=== PATIENT | female | born 1960 | race Caucasian/White ===

== ENCOUNTER 2018-03-23 20:03 | Outpatient (REF) | payer BC, SELFPAY ==
--- NOTE | 2018-03-23 14:45 | PAPFT_PTH ---
PATIENT: Viktoria Hurst LOC: N U#:[id number] AGE/SX: 57/F ROOM: RE03/23/[address]: BRI Macdonald : 1960 BED: DIS: 03/23/2018 SPEC #: [id number] RECD: 03/24/18 12:57 STATUS: CAROL ANN REQ #: [id number] HAMIDA: 03/23/18 14:[address]: Susana Carlisle DEPT: [facility] Cytology RECD BY: Alisha Tipton ENTERED: 03/24/18 12:57 SP TYPE: PAPFT OTHR DR: Ton Conrad MD Tissues: 1 - CX/ENDOCX FOR PAP SMEARS Procedures: PAP THIN PREP/UVM Screening HPV DNA PROBE Comments: [id number]
[2018-04-13 20:08] LABS: HPV High Risk type 16, PCR Negative (Negative); HPV High Risk type 18, PCR Negative (Negative); HPV other High Risk types, PCR Negative (Negative); Specimen Source CERVIX
== END 2018-03-23 20:23 ==
LOC: LBN 20:03
PROVIDERS: PCP Family Medicine; Visit Provider Nurse Practitioner Family
DX: Z12.4 Encounter for screening for malignant neoplasm of cervix (principal); Z11.51 Encounter for screening for human papillomavirus (HPV)
CPT/HCPCS: 87624; 88142

== ENCOUNTER 2018-06-12 12:56 | Outpatient (REF) | payer BC, SELFPAY ==
--- NOTE | 2018-06-12 11:20 | ENDO_PTH ---
PATIENT: Viktoria Hurst LOC: N U#:[id number] AGE/SX: 57/F ROOM: RE06/12/[address]: Tomasa Dubose : 1960 BED: DIS: 06/12/2018 SPEC #: [id number] RECD: 06/12/18 13:08 STATUS: CAROL ANN RECierra #: [id number] HAMIDA: 06/12/18 11:[address]: Tomasa Dubose DEPT: Surgical Specimen RECD BY: Alisha Tipton ENTERED: 06/12/18 13:08 SP TYPE: Endo OTHR DR: Ton Conrad MD Tissues: 1 - ENDOCERVICAL BX/CURRETTE Procedures: GROSS AND MICRO LEVEL 4 Comments: [id number]
== END 2018-06-12 13:16 ==
LOC: LBN 12:56
PROVIDERS: PCP Family Medicine; Visit Provider Obstetrics & Gynecology Gynecology
DX: N88.8 Other specified noninflammatory disorders of cervix uteri (principal); R87.810 Cervical high risk human papillomavirus (HPV) DNA test positive
CPT/HCPCS: 88305

== ENCOUNTER 2018-11-03 08:20 | Outpatient (CLI) | payer BC, SELFPAY ==
[2018-11-03 11:13] LABS: TSH 0.19 uIU/mL (0.358-3.74)
== END 2018-11-03 08:40 ==
PROVIDERS: PCP Family Medicine; Visit Provider Nurse Practitioner Family
DX: E03.9 Hypothyroidism, unspecified (principal)
CPT/HCPCS: 36415; 84443

== ENCOUNTER 2019-01-14 05:57 | Outpatient (CLI) | payer BC, SELFPAY ==
[2019-01-14 08:22] LABS: Abs Immature Grans 0.01 k/cumm (0.0-0.09); Absolute Basophil Count 0.02 k/cumm (0.0-0.2); Absolute Eosinophil Count 0.11 k/cumm (0.0-0.7); Absolute Lymphocyte Count 2.05 k/cumm (1.2-3.4); Absolute Monocyte Count 0.38 k/cumm (0.11-0.7); Absolute Neutrophil Count 5.72 k/cumm (1.2-6.7); Basophils % 0.2; Eosinophils % 1.3; HCT 38.6 % (36.0-46.0); HGB 12.8 g/dL (12.0-15.5); Immature Grans % 0.1; Lymphocytes % 24.7; Mean Corp. HGB Concentration 33.2 g/dL (32.0-36.0); Mean Corpuscular Hemoglobin 31.2 pg (27.0-33.0); Mean Corpuscular Volume 94.1 fL (80-95); Mean Platelet Volume 10.7 fL (8.0-11.0); Monocytes % 4.6; Neutrophils % 69.1; Platelet Count 320 x1000/uL (130-400); RBC Distribution Width 12.2 % (11.7-14.6); White Blood Cell Count 8.29 k/cumm (4.4-10.8)
[2019-01-14 09:11] LABS: ALT 27 U/L (12-78); AST 20 U/L (15-37); Albumin 3.5 g/dL (3.4-5.0); Alkaline Phosphatase 87 U/L (46-116); Anion Gap 7.7 mmol/L (3-11); BUN 12 mg/dL (7-18); Bilirubin, Total 0.4 mg/dL (0.2-1.0); CO2 28.3 mmol/L (21.0-32.0); CREATININE 0.72 mg/dL (0.55-1.02); Calcium 8.9 mg/dL (8.5-10.1); Calculated LDL 81 mg/dL; Chloride 107 mmol/L (98-107); Cholesterol 145 mg/dL (50-200); Glucose 95 mg/dL (70-100); HDL Cholesterol 55 mg/dL (40-60); Potassium 4.2 mmol/L (3.5-5.1); Sodium 143 mmol/L (136-145); Total Protein 6.5 g/dL (6.4-8.2); Triglyceride 46 mg/dL (30-150)
[2019-01-14 09:15] LABS: TSH 5.37 uIU/mL (0.36-3.74)
== END 2019-01-14 06:17 ==
PROVIDERS: Internal Medicine; PCP Family Medicine; Visit Provider Nurse Practitioner Family
DX: Z00.00 Encounter for general adult medical examination without abnormal findings
CPT/HCPCS: 36415; 80053; 80061; 83721; 84443; 85025

== ENCOUNTER 2019-06-02 09:41 | Outpatient (REF) | payer BC, SELFPAY ==
--- NOTE | 2019-06-02 09:15 | PAPFT_PTH ---
PATIENT: Viktoria Hurst LOC: N U#:[id number] AGE/SX: 58/F ROOM: RE06/02/[address]: Paris Lovett NP : 1960 BED: DIS: 06/02/2019 SPEC #: [id number] RECD: 06/02/19 12:50 STATUS: CAROL ANN REQ #: [id number] HAMIDA: 06/02/19 09:[address]: Paris Lovett NP DEPT: [facility] Cytology RECD BY: Alisha Tipton ENTERED: 06/02/19 12:51 SP TYPE: PAPFT OTHR DR: Ton Conrad MD Tissues: 1 - CX/ENDOCX FOR PAP SMEARS Procedures: PAP THIN PREP/UVM Screening HPV DNA PROBE Comments: [id number]
== END 2019-06-02 10:01 ==
LOC: LBN 09:41
PROVIDERS: PCP Family Medicine; Visit Provider Nurse Practitioner Women's Health
DX: Z12.4 Encounter for screening for malignant neoplasm of cervix (principal)
CPT/HCPCS: 88142; 87624

== ENCOUNTER 2019-06-11 03:15 | Outpatient (CLI) | payer BC, SELFPAY ==
--- NOTE | 2019-06-11 08:10 | DI.MAMMO_ITS ---
EXAM: MG MAMMO SCREENING CLINICAL HISTORY: screening, Z12.39 TECHNIQUE: Mammograms were interpreted according to the usual protocol including computer analysis w [facility] CAD system, tomosynthesis and C-view imaging. COMPARISON: FINDINGS: Breasts are heterogeneously dense. No dominant mass or clumped microcalcification is identified in e ither breast. There is an area of architectural distortion of the upper outer quadrant of the right breast. This appears to have been present on prior studies of December 2017 and October 2016 and is essentia lly unchanged in comparison with previous examinations. No new mass identified in either breast. Th e area of architectural distortion may represent prior. IMPRESSION: No specific evidence of malignancy at this time. Follow-up mammogram requested in 12 months to contin ue surveillance of an area of apparent stable architectural distortion of the upper outer quadrant of the right breast. Category 2 breast density category C
== END 2019-06-11 03:35 ==
PROVIDERS: PCP Family Medicine; Visit Provider Nurse Practitioner Women's Health
DX: Z12.31 Encounter for screening mammogram for malignant neoplasm of breast (principal); N60.81 Other benign mammary dysplasias of right breast
CPT/HCPCS: 77063; 77067

== ENCOUNTER → 2020-06-08 02:18 | Outpatient (CLI) | payer BC, SELFPAY ==
[2020-06-08 10:12] LABS: TSH 1.88 uIU/mL (0.36-3.74)
== END ==
PROVIDERS: PCP Family Medicine; Visit Provider Family Medicine
DX: E03.9 Hypothyroidism, unspecified (principal)
CPT/HCPCS: 36415; 84443

== ENCOUNTER 2020-06-28 15:08 | Outpatient (REF) | payer BC, SELFPAY ==
--- NOTE | 2020-06-28 14:30 | PAPFT_PTH ---
PATIENT: Viktoria Hurst LOC: [facility] U#:[id number] AGE/SX: 59/F ROOM: RE06/28/[address]: Paris Lovett NP : 1960 BED: DIS: 06/28/2020 SPEC #: [id number] RECD: 06/28/20 17:57 STATUS: CAROL ANN REQ #: [id number] HAMIDA: 06/28/20 14:[address]: Rachell [place] DEPT: [facility] Cytology RECD BY: Alisha Tipton ENTERED: 06/28/20 17:57 SP TYPE: PAPFT OTHR DR: Ton Conrad MD Tissues: 1 - CX/ENDOCX FOR PAP SMEARS Procedures: PAP THIN PREP/UVM Screening HPV DNA PROBE Comments: [id number]
== END 2020-06-28 15:28 ==
LOC: LBN 15:08
PROVIDERS: PCP Family Medicine; Visit Provider Nurse Practitioner Women's Health
DX: Z12.4 Encounter for screening for malignant neoplasm of cervix (principal); Z11.51 Encounter for screening for human papillomavirus (HPV)
CPT/HCPCS: 88142; 87624

== ENCOUNTER 2020-07-12 01:38 | Outpatient (CLI) | payer BC, SELFPAY ==
--- NOTE | 2020-07-12 12:55 | DI.MAMMO_ITS ---
EXAM: MAMMO SCREENING CLINICAL HISTORY: screening TECHNIQUE: Mammograms were interpreted according to the usual protocol including computer analysis w [employer] CAD system, tomosynthesis and C-view imaging. COMPARISON: 2010 through 2018 FINDINGS: The breasts are composed of heterogeneously dense fibroglandular densities, Breast Density category C . No suspicious masses or suspicious microcalcifications are seen. Coarse, benign calcifications are a gain noted. There are stable areas nodularity in both breasts. No skin thickening or abnormal axillary lymph nodes are seen. There has been no significant change from prior exams. IMPRESSION: BI-RADS Cat 2 - Benign Findings Yearly screening mammography is recommended. Breast Density Category C, heterogeneously Dense. The mammogram demonstrates the patient's breast tissue is dense. Dense breast tissue is very common a nd is not abnormal but dense breast tissue can make it harder to find cancer on a mammogram. Also, de nse breast tissue may increase breast cancer risk. This information about the result of the mammogram report was provided to the patient to raise their awareness. Use this report when you speak with the patient about their risks for breast cancer, which includes their family history. At that time, you may recommend additional screening tests (Ultrasound or MRI) as they might be useful based on their r isk. A negative radiographic report should not delay biopsy if a dominant or clinically suspicious mass is present. Up to ten percent of cancers are not identified on mammography. A negative report may reinforce clinical impression. Adenosis and dense breasts may obscure an underlying neoplasm. False positive reports average 6 to 10%.
== END 2020-07-12 01:58 ==
PROVIDERS: PCP Family Medicine; Visit Provider Nurse Practitioner Women's Health
DX: Z12.31 Encounter for screening mammogram for malignant neoplasm of breast (principal)
CPT/HCPCS: 77063; 77067

== ENCOUNTER 2020-09-20 03:12 | Outpatient (CLI) | payer BC, SELFPAY ==
[2020-09-20 11:38] LABS: HCT 38.5 % (36.0-46.0); HGB 12.7 g/dL (11.2-15.7); MCH 31.4 pg (27.0-33.0); MCV 95.3 fL (80-95); MPV 10.6 fL (8.0-11.0); Platelet Count 332 10^3/uL (130-400); RBC 4.04 10^6/uL (3.93-5.22); RDW 11.7 % (11.7-14.6); RDW-SD 40.6 fL
[2020-09-20 11:51] LABS: ALT 22 U/L (14-59); AST 20 U/L (15-37); Albumin 3.8 g/dL (3.4-5.0); Alkaline Phosphatase 80 U/L (46-116); BUN 18 mg/dL (7-18); Bilirubin, Total 0.4 mg/dL (0.2-1.0); CREATININE 0.8 mg/dL (0.55-1.02); Calcium 9.1 mg/dL (8.5-10.1); Calculated LDL 92 mg/dL (<100); Chloride 105 mmol/L (98-107); Cholesterol 179 mg/dL (<200); Glucose 100 mg/dL (74-106); HDL Cholesterol 77 mg/dL (40-60); Potassium 4.2 mmol/L (3.5-5.1); Sodium 144 mmol/L (136-145); Total Protein 6.8 g/dL (6.4-8.2); Triglyceride 54 mg/dL (<150)
== END 2020-09-20 03:13 | disposition home or self-care (01) ==
LOC: LOS 03:12
PROVIDERS: PCP Family Medicine; Visit Provider Nurse Practitioner Family
DX: Z00.00 Encounter for general adult medical examination without abnormal findings (principal)
CPT/HCPCS: 36415; 80053; 80061; 85027

== ENCOUNTER 2020-09-20 17:24 | Inpatient (IN) | payer BC, SELFPAY ==
[2020-09-20] VITALS (21 sets, daily range): BP systolic 114–153; BP diastolic 51–86; PULSE 61–77; RESP 18; TEMP 36.3–37.9; O2SAT 95–99
--- NOTE | 2020-09-20 18:14 | W.ED.GENAD ---
Discharge Plan Disposition Patient Disposition: [facility] INPATIENT Condition: Serious Discharge Details Chief Complaint: Abd Prob Clinical Impression: Acute appendicitis Admit Date/Time: 09/20/20 22:35 Admit Provider: Monica Potter Attending Provider: Monica Potter Primary Care Provider: Ton Conrad ED Provider: Edouard Magana Medical Decision Making This is a 60-year-old female, past medical history of hypothyroidism, presenting to the ER today complaining of abdominal pain, crampy, worse in the right lower quadrant began yesterday. Associated nausea and multiple dry heaves. Clinically she is dry heaving, has right lower quadrant pain. Differential includes not excluded to appendicitis, colitis, atypical diverticulitis, small bowel obstruction, ileus, etc. We will obtain IV access, give IV fluid, 2 mg IV morphine, Zofran, routine laboratory values. Laboratory values reveal a white blood cell count of 16.30 hemoglobin 13.5 hematocrit 40.3 platelet count 338. Electrolytes unremarkable, creatinine 0.8 with a GFR greater than 60, glucose 113. TSH 8.4 free T4 105. Urinalysis pending. CT read by virtual radiology as acute uncomplicated appendicitis with marked distention likely due to calcified appendicolith or inspissated mucus at the base of the cecum. No perforation or periappendiceal abscess at this time. Multiple uterine fibroids CT findings discussed with patient. She was given IV Zosyn. She also required a dose of IV medication, given IV Dilaudid. Unfortunately we do not have capacity for admission at our hospital, both [facility] and [facility] at capacity as well. Will attempt transfer to [facility]. I discussed the case with surgical team at [facility] at 2123, Dr. Daniels. He felt as though I should talk with our surgical team here because the patient could likely have surgery and be discharged home. I discussed the case with Dr. Potter who felt as though watching the patient after surgery for at least 12 hours would be her preference and therefore would prefer we transfer. I once again spoke with Dr. Daniels at 2153. He accepts admission. All appropriate transfer paperwork completed I then received a call from our supervisor malt house, apparently a bed is available here if the patient would prefer to be admitted at our facility. I discussed options with the patient, she would prefer to be admitted to our facility. I once again reached out to our surgical team, Dr. Potter. She is agreeable to admission. I will place holding orders and she will see the patient in the morning. Medical Records Medical records reviewed: Yes I reviewed the patient's medical records. Lab Data Lab results reviewed: Yes I reviewed the patient's lab results. Labs: Laboratory Tests Range/Units 09/20/20 09/20/20 18:00 18:00 WBC (4.4-10.8) 10^3/uL 16.30 H D RBC (3.93-5.22) 10^6/uL 4.23 Hgb (11.2-15.7) g/dL 13.5 Hct (36.0-46.0) % 40.3 MCV (80-95) fL 95.3 H MCH (27.0-33.0) pg 31.9 MCHC (32.0-36.0) % 33.5 RDW (11.7-14.6) % 11.6 L Plt Count (130-400) 10^3/uL 338 MPV (8.0-11.0) fL 10.3 Immature Gran % 0.4 Neutrophils % 86.3 Lymphocytes % 9.3 Monocytes % 3.6 Eosinophils % 0.2 Basophils % 0.2 Nucleated RBC % % 0 Absolute Neutrophils (1.2-6.7) 10^3/uL 14.07 H Absolute Lymphocytes (1.2-3.4) 10^3/uL 1.52 Absolute Monocytes (0.1-0.8) 10^3/uL 0.59 Absolute Eosinophils (0.0-0.7) 10^3/uL 0.03 Absolute Basophils (0.0-0.2) 10^3/uL 0.03 Sodium (136-145) mmol/L 140 Potassium (3.5-5.1) mmol/L 3.5 Chloride (98-107) mmol/L 103 Carbon Dioxide (21.0-32.0) mmol/L 29.0 Anion Gap (3-11) mmol/L 8.0 BUN (7-18) mg/dL 18 Creatinine (0.55-1.02) mg/dL 0.8 Estimated GFR/1.73 m2 (mL/min/1.73m2) >= 60.00 Glucose (74-106) mg/dL 113 H Calcium (8.5-10.1) mg/dL 9.3 Total Bilirubin (0.2-1.0) mg/dL 0.5 AST (15-37) U/L 18 ALT (14-59) U/L 23 Alkaline Phosphatase (46-116) U/L 83 Total Protein (6.4-8.2) g/dL 7.8 Albumin (3.4-5.0) g/dL 3.9 Lipase (73-393) U/L 94 TSH (0.36-3.74) uIU/mL 8.40 H Free T4 (0.76-1.46) ng/dL 1.05 HPI General Mode of arrival: ambulatory. Date/Time Provider Initiated Documentation: 09/20/20 17:36. Limitations to Documentation: no limitations. Information obtained by: patient. HPI Narrative: This is a 60-year-old female, past medical history of hypothyroidism, presenting to the ER for 1 day history of abdominal pain worse in the right lower quadrant, nausea and vomiting. She states it began after eating a sandwich so she wonders to stand which was bad but she does not think so. She denies change in bowel or bladder function. She denies recent illness or trauma. She states that she had her right ovary removed but denies any other abdominal surgeries. She denies headache, fever, chest pain, shortness of breath, back pain, black tarry stools or blood in her stools. Reports the pain is mild currently but comes in waves, is crampy and is moderate to severe at times. She states that during her vomiting she is primarily dry heaving but not emptying the contents of her stomach. Related Data Home Medications Medication Instructions Recorded Confirmed zolpidem 10 mg tablet 10 mg PO QHS PRN #30 tab 01/06/19 09/20/20 levothyroxine 200 mcg tablet 200 mcg PO DAILY #90 tab-cap 06/11/20 09/20/20 meloxicam 7.5 mg tablet 7.5 mg PO DAILY PRN tab-cap 06/28/20 09/20/20 Previous Rx's Medication Instructions Recorded zolpidem 10 mg tablet 10 mg PO QHS PRN #30 tab 01/06/19 levothyroxine 200 mcg tablet 200 mcg PO DAILY #90 tab-cap 06/11/20 Allergies Allergy/AdvReac Type Severity Reaction Status Date / Time No Known Allergies Allergy Verified 09/06/20 09:04 General Stated Complaint: Abd Prob GEETA: 3 Review of Systems Constitutional Constitutional: Denies fatigue, Denies fever(s) and Denies headache(s) ENT Ears, Nose, Mouth, and Throat: Denies headache(s) Cardiovascular Cardiovascular: Denies chest pain and Denies dyspnea Respiratory Respiratory: Denies cough and Denies dyspnea Gastrointestinal Gastrointestinal: Reports abdominal pain, Denies melena, Denies hematochezia, Denies constipation, Denies diarrhea, Reports nausea and Reports vomiting Genitourinary Genitourinary: Denies dysuria Musculoskeletal Musculoskeletal: Denies back pain Integumentary/Breasts Skin/Breast: Denies rash Neurologic Neurologic: Denies headache(s) Endocrine Endocrine: Denies fatigue Hematologic/Lymphatic Hematologic/Lymphatic: Denies easy bleeding and Denies easy bruising PFSH Medical History Anxiety History of difficulty sleeping HPV test positive 2016, 2018. + HR HPV, Nl pap. 06/12/18 colpo directed bx. Hypothyroidism Plantar fasciitis, bilateral Surgical History Colonoscopy - MAC (12/19/17) H/O radioactive iodine thyroid ablation History of bilateral ligation of fallopian tubes Ligation of fallopian tube Status post endometrial ablation 2006 Family History Mother Essential hypertension Heart disease A-FIB Father , 84 Diabetes Essential hypertension Personal history of malignant neoplasm PROSTATE Heart disease Sister , 61 Personal history of malignant neoplasm COLON Paternal Grandfather No problems noted. Social History Smoking/Tobacco Use Status: Never Smoking risk assessment performed?: Yes Alcohol Intake: current Alcohol Intake frequency: a few times a month Drug use: Never Substance use type: does not use Caregiver/Support person: No Household members: none Housing: house Communication Needs: None Do you need help understanding health information?: Never Pets and animals: No Current gender identity: decline to answer What is your relationship status?: How often do you talk on the phone with friends or family?: decline to answer How often do you get together with friends or relatives?: decline to answer How often do you attend rastafari or mosque services?: decline to answer Do you belong to any clubs or organized social groups?: decline to answer Panel score (0-1 are the most socially isolated patients): 0 What type of physical activity do you participate in: decline to answer Duration: 15-30 minutes/day Frequency: 3-4 times per week Fang/Faith: No preference Special fang needs: No Seatbelt use: always Helmet use: Yes Drive intox 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 Do you feel safe at home: Yes Do you feel safe in your relationship?: Yes Female Reproductive History Menstrual Menopause type: natural History History 3 Para Hx # Term Pregnancies 3 Multiple births Hx # Pregnancies Ectopic pregnancies AB induced Hx Number of Living Children AB spontaneous Exam Const General: cooperative, no acute distress and in distress (Dry heaving) Orientation: alert, awake and oriented x3 HENMT Head: normal to inspection, normocephalic and atraumatic Mouth: moist mucous membranes Eyes General: appearance normal, both eyes and all related structures Conjunctivae: conjunctivae normal Neck Neck: normal visual inspection, full ROM, trachea midline and supple Resp Effort & Inspection: normal respiratory effort and able to speak in complete sentences Auscultation: clear to auscultation bilaterally Cardio Rate: regular rate Rhythm: regular rhythm GI Inspection: normal to inspection Palpation: soft, not firm, no guarding, no pulsatile masses and tender in the RLQ; with no rebound tenderness Auscultation: normal bowel sounds Back/Spine/Pelvis Back: No back tenderness Skin General skin exam: no rashes or lesions noted Neuro General: patient alert, patient awake, patient oriented x3, moves all extremities and no focal motor deficits Cognition: normal cognition Speech: speech normal Gait: normal gait Motor: muscle tone normal throughout Sensory Exam: no sensory deficits noted Extrem General: normal to inspection, full ROM and capillary refill normal Psych Appearance: grossly normal Mental Status: mental status grossly normal Course Vital Signs Vital signs: Vital Signs Temperature 36.3 C L 09/20/20 17:30 Pulse 77 09/20/20 17:30 Respiratory Rate 18 09/20/20 17:30 Blood Pressure 150/76 H 09/20/20 17:30 Pulse Oximetry 97 09/20/20 17:30 Temperature 36.3 C L 09/20/20 17:30 Temperature Source Skin 09/20/20 17:30 Pulse 77 09/20/20 17:30 Respiratory Rate 18 09/20/20 17:30 Respiratory Effort Non-Labored 09/20/20 17:33 Blood Pressure 150/76 H 09/20/20 17:30 Blood Pressure Position Sitting 09/20/20 17:30 Pulse Oximetry 97 09/20/20 17:30 Oxygen Delivery Method Room Air 09/20/20 17:30 Oxygen Flow Rate 0 09/20/20 17:30 Pain Level 5 09/20/20 17:30
[2020-09-20 18:23] LABS: Abs Immature Grans 0.07 10^3/uL (0.0-0.06); Absolute Basophil Count 0.03 10^3/uL (0.0-0.2); Absolute Lymphocyte Count 1.52 10^3/uL (1.2-3.4); Basophils % 0.2; Eosinophils % 0.2; HCT 40.3 % (36.0-46.0); HGB 13.5 g/dL (11.2-15.7); Immature Grans % 0.4; Lymphocytes % 9.3; MCH 31.9 pg (27.0-33.0); MCHC 33.5 % (32.0-36.0); MCV 95.3 fL (80-95); MPV 10.3 fL (8.0-11.0); Monocytes % 3.6; Neutrophils % 86.3; Nucleated RBC 0 %; Platelet Count 338 10^3/uL (130-400); RBC 4.23 10^6/uL (3.93-5.22); RDW 11.6 % (11.7-14.6); RDW-SD 40.3 fL
[2020-09-20 18:24] LABS: Absolute Eosinophil Count 0.03 10^3/uL (0.0-0.7); Absolute Monocyte Count 0.59 10^3/uL (0.1-0.8); Absolute Neutrophil Count 14.07 10^3/uL (1.2-6.7)
[2020-09-20] MEDS: Normal Saline 1,000 ML 1000 ML IV ×2 (18:35→22:10)
[2020-09-20] MEDS: Ondansetron 4 MG/2 ML VIAL IVP ×2 (18:35→22:11)
[2020-09-20 18:46] LABS: ALT 23 U/L (14-59); AST 18 U/L (15-37); Albumin 3.9 g/dL (3.4-5.0); Alkaline Phosphatase 83 U/L (46-116); BUN 18 mg/dL (7-18); Bilirubin, Total 0.5 mg/dL (0.2-1.0); CREATININE 0.8 mg/dL (0.55-1.02); Calcium 9.3 mg/dL (8.5-10.1); Chloride 103 mmol/L (98-107); Glucose 113 mg/dL (74-106); Lipase 94 U/L (73-393); Potassium 3.5 mmol/L (3.5-5.1); Sodium 140 mmol/L (136-145); Total Protein 7.8 g/dL (6.4-8.2)
[2020-09-20 19:04] LABS: FREE T4 1.05 ng/dL (0.76-1.46)
[2020-09-20] MEDS: HYDROmorphone 2 MG/ML VIAL 1 MG IVP ×2 (19:22→22:10)
[2020-09-20] MEDS: Normal Saline Flush 10 ML SYR IVP (20:01)
[2020-09-20] MEDS: Omnipaque 350 MG/ML 100 ML BTL IJ (20:06)
[2020-09-20] MEDS: Normal Saline - Diluent 50 ML VIAL IV (20:07)
--- NOTE | 2020-09-20 20:07 | DI.CT_ITS ---
EXAM: CT ABDOMEN PELVIS W CLINICAL HISTORY: R sided pain, N/V, decreased BM. TECHNIQUE: Imaging Protocol: Axial computed tomography images with coronal and sagittal reformatted images were created and reviewed CONTRAST MATERIAL: Intravenous: Omnipaque 350 Contrast volume:100 ml Oral: no COMPARISON: CT RENAL COLIC WO CONTRAST from 09/01/2010 FINDINGS: ABDOMEN: Lung Bases: Normal where visualized. Liver: Normal density. No measurable mass. Gallbladder and biliary tract: No radiodense calculus or dilation. Pancreas: Normal density, no abnormal calcifications or inflammatory process. Spleen: Normal. Kidneys: Normal size, contour and axis. No radiodense stones or obstructive uropathy. No masses seen. Adrenal glands: No masses seen. Abdominal Aorta: Abdominal portion non-dilated. PELVIS: Bladder: Symmetric distention, no gross wall thickening. Bowel: Distended appendix with high-density material in surrounding stranding in the fat, consistent with appendicitis. No perforation or abscess. No obstruction. Peritoneal cavity: No ascites, collection or mesenteric inflammatory response. Bones: Within normal limits. Reproductive organs: Multiple small uterine fibroids. Lymph nodes: No adenopathy. Impression: Acute appendicitis. No perforation or abscess. RADIATION DOSE DELIVERED: 1,347.81mGy.cm Total DLP DATA REPOSITORY: All CT scans at this facility are submitted to the National Radiology Data Registry (NRDR) Dose Index Registry (DIR) with the [employer] (ACR). RADIATION OPTIMIZATION: All CT scans at this facility use at least one of these dose optimization te chniques: automated exposure control; mA and/or kV adjustment per patient size (includes targeted exa ms where dose is matched to clinical indication); or iterative reconstruction.
--- NOTE | 2020-09-20 20:35 | DI.VRAD_ITS ---
Addendum created by Vladimir Adler MD on 09/20/2020 8:57:19 PM EDT: The study was personally discussed on the telephone with Edouard Newton on 09/20/2020 8:57 PM EDT. The results were understood and acknowledged. Initial report created on 09/20/2020 8:35:39 PM EDT: PROCEDURE INFORMATION: Exam: CT Abdomen And Pelvis With Contrast Exam date and time: 09/20/2020 7:59 PM Age: 60 years old Clinical indication: Abdominal pain; Localized; Right; Prior surgery; Surgery date: 6+ months; Surgery type: Ovarian cyst TECHNIQUE: Imaging protocol: Computed tomography of the abdomen and pelvis with contrast. Radiation optimization: All CT scans at this facility use at least one of these dose optimization techniques: automated exposure control; mA and/or kV adjustment per patient size (includes targeted exams where dose is matched to clinical indication); or iterative reconstruction. Contrast material: [id number]; Contrast volume: 100 ml; Contrast route: INTRAVENOUS (IV); COMPARISON: No relevant prior studies available. FINDINGS: Lungs: Visualized lung bases are clear. The heart size is normal. Liver: Simple subcapsular segment 6 hepatic cyst near Morison's pouch measures 1 cm. Gallbladder and bile ducts: Normal. No calcified stones. No ductal dilation. Pancreas: Normal. No ductal dilation. Spleen: Normal. No splenomegaly. Adrenal glands: Normal. No mass. Kidneys and ureters: Normal. No hydronephrosis. Stomach and bowel: Unremarkable. No obstruction. No mucosal thickening. Appendix: Dilated appendix with high density material within the base representing inspissated mucus and/or appendicoliths. The maximal dimension is 1.4 cm. Periappendiceal fat stranding without evidence for free air or free fluid at this time. No periappendiceal abscess. Intraperitoneal space: Minimal layering right pelvic fluid. Vasculature: Unremarkable. No abdominal aortic aneurysm. Lymph nodes: Unremarkable. No enlarged lymph nodes. Urinary bladder: Unremarkable as visualized. Reproductive: Multiple uterine fibroids. The largest fundal fibroid measures 2.7 cm. Exophytic right uterine fundal fibroid measures 2.6 cm. No adnexal mass. Bones/joints: Unremarkable. No acute fracture. Soft tissues: Unremarkable. IMPRESSION: 1. Acute uncomplicated appendicitis with marked distension likely due to calcified appendicoliths or inspissated mucus at the base with the cecum. No appendiceal perforation or periappendiceal abscess at this time. 2. Multiple uterine fibroids. The largest measures 2.7 cm. Dictated and Authenticated by: Vladimir Adler MD. Ordering:TAMICA Nunn MD
[2020-09-20] MEDS: PIPERACILLIN/TAZO 3.375 GM in Normal Saline 50 ML IVPB (21:05)
[2020-09-20 23:11] LABS: Source Nasal/Nares
[2020-09-21] VITALS (15 sets, daily range): BP systolic 97–127; BP diastolic 48–69; PULSE 56–72; RESP 14–19; TEMP 36.6–37.9; O2SAT 92–100
[2020-09-21] MEDS: HYDROmorphone 2 MG/ML VIAL 0.5 MG IVP (00:42)
[2020-09-21] MEDS: Normal Saline 1,000 ML 150 ML IV (00:42)
[2020-09-21] MEDS: Normal Saline Flush 10 ML SYR IVP ×4 (00:43→14:19)
--- NOTE | 2020-09-21 01:42 | NUR.NOTE ---
Nursing Note: Patient was informed of MD order for bedrest and OOB only to commode for voiding. Patient states I have been getting up to go to the bathroom with this for over 24hrs. I'm not using a commode. RN stated she will still need to bring a commode in the room per MD orders. Patient stated that she refuses a commode be brought in the room. Charge nurse notified.
--- NOTE | 2020-09-21 05:55 | W.PREOPHP ---
Date of service: 09/21/20 Time of Service: 05:55 Assessment and Plan Assessment and plan (1) Acute appendicitis: Status: Acute Assessment and plan: Mrs. Hurst is a pleasant 60 year old female with [address] RLQ pain. CT scan showed a dilated and inflamed appendix. WBC count was elevated at >16. Laparoscopic appendectomy with possible open procedure was explained. Risks, benefits and complications were reviewed. Questions were entertained and answered to their satisfaction and they wished to proceed. No guarantees were given or implied. Proceed with Laparoscopic Appendectomy Qualifiers: Acute appendicitis type: with localized peritonitis Appendicitis gangrene presence: without gangrene Appendicitis perforation presence: without perforation Appendicitis abscess presence: without abscess Qualified Code(s): K35.30 - Acute appendicitis with localized peritonitis, without perforation or gangrene History of Present Illness History of Present Illness Chief Complaint: RLQ pain Narrative: This is a 60-year-old female, past medical history of hypothyroidism, presenting to the ER yesterday evening complaining of abdominal pain, crampy, worse in the right lower quadrant began yesterday. Associated nausea and multiple dry heaves. Clinically she was dry heaving, has right lower quadrant pain. Labs showed Leukocytosis with WBC count of >16. CT scan showed a dilated appendix with some inflammation. No signs of perforation. She was admitted around midnight to undergo surgery this morning. Her pain has been controlled with small doses of dilauded. She is no longer dry heaving or feeling nauseated. She is having some low grade fevers. Review of Systems Constitutional Constitutional: Reports fever(s), Denies headache(s), Reports poor appetite and Denies weight loss Eyes Eyes: Denies change in vision ENT Ears, Nose, Mouth, and Throat: Denies change in voice and Denies headache(s) Cardiovascular Cardiovascular: Denies chest pain, Denies chest pain at rest, Denies irregular heart rhythm, Denies palpitations and Denies dyspnea Respiratory Respiratory: Denies chest congestion, Denies cough and Denies dyspnea Gastrointestinal Gastrointestinal: Reports as per HPI, Denies dyspepsia and Denies heartburn Genitourinary Genitourinary: Denies difficulty voiding, Denies dysuria, Denies urinary incontinence, Denies urinary hesitancy and Denies urinary urgency Musculoskeletal Musculoskeletal: Reports system reviewed and no additional complaints, except as documented Integumentary/Breasts Skin/Breast: Reports system reviewed and no additional complaints, except as documented Neurologic Neurologic: Reports system reviewed and no additional complaints, except as documented and Denies headache(s) Endocrine Endocrine: Denies palpitations [facility] Medical History (Updated 09/21/20 @ 06:01 by Monica Potter MD) Anxiety Contact dermatitis History of difficulty sleeping HPV test positive 2017, 2018. + HR HPV, Nl pap. 06/12/18 colpo directed bx. Hypothyroidism Plantar fasciitis, bilateral Surgical History (Updated 09/21/20 @ 05:59 by Monica Potter MD) Colonoscopy - MAC (12/19/17) H/O radioactive iodine thyroid ablation History of bilateral ligation of fallopian tubes Hx of oophorectomy Ligation of fallopian tube Status post endometrial ablation 2006 Family History Mother Essential hypertension Heart disease A-FIB Father , 84 Diabetes Essential hypertension Personal history of malignant neoplasm PROSTATE Heart disease Sister , 61 Personal history of malignant neoplasm COLON Paternal Grandfather No problems noted. Social History Smoking/Tobacco Use Status: Never Smoking risk assessment performed?: Yes Alcohol Intake: current Alcohol Intake frequency: a few times a month Drug use: Never Substance use type: does not use Caregiver/Support person: No Household members: none Housing: house Communication Needs: None Do you need help understanding health information?: Never Pets and animals: No Current gender identity: decline to answer What is your relationship status?: How often do you talk on the phone with friends or family?: decline to answer How often do you get together with friends or relatives?: decline to answer How often do you attend temple or holiness services?: decline to answer Do you belong to any clubs or organized social groups?: decline to answer Panel score (0-1 are the most socially isolated patients): 0 What type of physical activity do you participate in: decline to answer Duration: 15-30 minutes/day Frequency: 3-4 times per week Fang/Temple: No preference Special fang needs: No Seatbelt use: always Helmet use: Yes 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 Do you feel safe at home: Yes Do you feel safe in your relationship?: Yes Female Reproductive History Menstrual Menopause type: natural History History 3 Para Hx # Term Pregnancies 3 Multiple births Hx # Pregnancies Ectopic pregnancies AB induced Hx Number of Living Children AB spontaneous Meds Home Medications and Allergies Allergies Allergy/AdvReac Type Severity Reaction Status Date / Time No Known Allergies Allergy Verified 09/06/20 09:04 Home Medications Medication Instructions Recorded Confirmed Type zolpidem 10 mg tablet 10 mg PO QHS PRN #30 tab 01/06/19 09/20/20 Rx levothyroxine 200 mcg tablet 200 mcg PO DAILY #90 tab-cap 06/11/20 09/20/20 Rx meloxicam 7.5 mg tablet 7.5 mg PO DAILY PRN tab-cap 06/28/20 09/20/20 History Exam Const General: cooperative, comfortable and no acute distress Orientation: alert and oriented x3 HENMT Head: normocephalic and atraumatic Resp Effort & Inspection: normal respiratory effort Auscultation: clear to auscultation bilaterally Cardio Rate: regular rate Rhythm: regular rhythm Heart Sounds: no gallops, no murmurs and no rubs GI Inspection: scar Palpation: soft, no hepatosplenomegaly and tender in the RLQ Auscultation: normal bowel sounds Results Labs Result diagrams: 09/20/20 18:00 09/20/20 18:00 Labs: Laboratory Results - last 24 hr 09/20/20 09/20/20 09/20/20 18:00 18:00 23:03 WBC 16.30 H D RBC 4.23 Hgb 13.5 Hct 40.3 MCV 95.3 H MCH 31.9 MCHC 33.5 RDW 11.6 L Plt Count 338 MPV 10.3 Immature Gran % 0.4 Neutrophils % 86.3 Lymphocytes % 9.3 Monocytes % 3.6 Eosinophils % 0.2 Basophils % 0.2 Nucleated RBC % 0 Absolute Neutrophils 14.07 H Absolute Lymphocytes 1.52 Absolute Monocytes 0.59 Absolute Eosinophils 0.03 Absolute Basophils 0.03 Sodium 140 Potassium 3.5 Chloride 103 Carbon Dioxide 29.0 Anion Gap 8.0 BUN 18 Creatinine 0.8 Estimated GFR/1.73 m2 >= 60.00 Glucose 113 H Calcium 9.3 Total Bilirubin 0.5 AST 18 ALT 23 Alkaline Phosphatase 83 Total Protein 7.8 Albumin 3.9 Lipase 94 TSH 8.40 H Free T4 1.05 COVID-19 Source Nasal/nares Last Vital Signs Temp 100.2 F H 09/21/20 02:33 Pulse 66 09/21/20 02:33 Resp 18 09/21/20 02:33 BP 114/61 09/21/20 02:33 Pulse Ox 97 09/21/20 02:33
[2020-09-21] MEDS: Lactated Ringers 1,000 ML 30 ML IV (06:48)
[2020-09-21] MEDS: Piperacillin/Tazobactam 3.375 GM VIAL (06:51)
--- NOTE | 2020-09-21 07:08 | APP_PTH ---
PATIENT: Viktoria Hurst LOC: U#:[id number] AGE/SX: 60/F ROOM: MS.218 RE09/20/[address]: Monica Potter MD : 1960 BED: A DIS: 09/21/2020 SPEC #: [id number] RECD: 09/21/20 12:19 STATUS: SOUT REQ #: [id number] HAMIDA: 09/21/20 07:[address]: Monica Potter DEPT: Surgical Specimen RECD BY: Alisha Tipton ENTERED: 09/21/20 12:19 SP TYPE: Appendix OTHR DR: Ton Conrad MD Tissues: 1 - APPENDIX NOT INCIDENTAL Procedures: GROSS AND MICRO LEVEL 3 Comments: [id number]
[2020-09-21] MEDS: Bupivacaine LIPOSOME/PF 133 MG/10 ML VIAL IJ (07:18)
[2020-09-21] MEDS: Bupivacaine 0.25% Pres-Free 10 ML VIAL (07:18)
[2020-09-21] MEDS: ACETAMINOPHEN 1,000 MG/100 ML BTL 400 MG IVPB (07:51)
[2020-09-21] MEDS: HYDROmorphone 2 MG/ML VIAL IVP (07:58)
[2020-09-21 09:28] LABS: COVID-19 PCR Negative (Negative)
--- NOTE | 2020-09-21 09:39 | W.PM.OP ---
Date of service: 09/21/20 Time of Service: 09:39 Operative Note Operative Note DATE OF PROCEDURE: 09/21/20 PRE-OP DIAGNOSIS: Acute Appendicitis PROCEDURE: Laparoscopic Appendectomy SURGEON: Monica Potter ASSISTANT GOLF PROFESSIONAL: Sylvia Judge ANESTHESIA TYPE: General LMA/ETT Refer to Anesthesia Record ESTIMATED BLOOD LOSS: 25 PATHOLOGY: other (Appendix) COMPLICATIONS: None Patient was transported to: PACU Patient's condition: stable Indications: Mrs. Hurst is a pleasant 60 year old female with [address]LQ pain. CT scan showed a dilated and inflamed appendix. WBC count was elevated at >16. Laparoscopic appendectomy with possible open procedure was explained. Risks, benefits and complications were reviewed. Questions were entertained and answered to their satisfaction and they wished to proceed. No guarantees were given or implied. Findings: enlarged and inflammaed appendix Procedure Description: After informed consent was obtained the patient was taken to the operating room placed in the supine position SCDs were applied as well as monitors. A timeout was done. The patient was then placed under general anesthesia and intubated without any difficulty. Next a Christine catheter was placed in a standard surgical fashion. At this point the abdomen was prepped and draped in a sterile surgical fashion with chlorhexidine. A second timeout was done and the patient's name, date of , operation to be performed, DVT prophylaxis, antibiotic given, and fire risk was assessed. Exparel was mixed 50-50 with 0.25% Bupivocaine. The mixture was injected into the dermis just above the umbilicus. A small 5 mm incision was made with an 11 blade. The skin was grasped with penetrating towel clamps on either side of the incision and then using a Visiport a 5 mm port was placed under direct visualization into the abdomen. The abdomen was insufflated. Local anesthetic was then injected just above the pubic symphysis and a small 5 mm incision was made with an 11 blade and another 5 mm port was placed under direct visualization into the abdomen. The local anesthetic was then injected in the left lower quadrant area and a 11 mm incision was made with an 11 blade. A 11 mm port was then placed under direct visualization. The patient's bed was then turned to the left head down allowing me to sweep of the small bowel out of the right lower quadrant. The cecum was gently grasped and the appendix was identified. The appendix looked inflammed and thickened. The appendix was grasped at the neck and pulled up slightly allowing me to visualize the junction with the cecum. Using the Maureen dissector a small window was made in the meso-appendix. Using a laparoscopic straight stapler the appendix was transected at the junction with the cecum. Using the laparoscopic LigaSure the mesoappendix was slowly transected. Once the meso-appendix was transected, the appendix was placed into an Endo Catch bag and removed through the 11 mm port site. The port was placed back into the abdomen and the staple line was identified. No bleeding was noted. The transected mesentery was identified and no bleeding was noted. The abdomen was then irrigated with 500 cc of warm normal saline. The effluent was clear. The staple line was inspected one more time and no bleeding was identified at this point. Once all the fluid was suctioned out of the abdomen the 2 5 mm ports were then removed under direct visualization and no bleeding was noted from the fascia. The insufflation was stopped and the 11 mm port was removed. The 11 mm port site fascia was closed with a 0 Vicryl [id number] suture. The skin was then closed with 4-0 Vicryl. The skin was cleaned and dried and skin affix was applied. The patient was woken up extubated and taken back to recovery room in stable condition. There were no immediate complications. Sponge instrument needle counts were correct at the end of the case x2.
--- NOTE | 2020-09-21 10:19 | PDOC.CMIN ---
- If Service Date Differs Date of service: 09/21/20 Time of Service: 10:19 Care Management Initial Assess REASON FOR HOSPITALIZATION:: appendicitis PAST MEDICAL HISTORY/PAST SURGICAL HISTORY:: Medical History (Updated 09/21/20 @ 06:01 by Mnoica Potter MD). Anxiety. Contact dermatitis. History of difficulty sleeping. HPV test positive. 2016, 2018. + HR HPV, Nl pap. 06/12/18 colpo directed bx. Hypothyroidism. Plantar fasciitis, bilateral. Surgical History (Updated 09/21/20 @ 05:59 by Monica Potter MD). Colonoscopy - MAC (12/19/17). H/O radioactive iodine thyroid ablation. History of bilateral ligation of fallopian tubes. Hx of oophorectomy. Ligation of fallopian tube. Status post endometrial ablation. 2006 PREVIOUS FUNCTIONAL STATUS/SOCIAL/FAMILY SUPPORTS:: Viktoria lives in [place], [place] in a single family home with 2 floors. She has 3 children who are scattered per her account. She also has many friends in the area that she considerd good supports. 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 She also worked at [employer] for a long time. Viktoria is independent and receives no services. CURRENT FUNCTIONAL STATUS:: Viktoria was sitting up in a chair when CM met with her. She was having sips of fluids at the time and had requested rodrigo crackers. She stated that she was feeling pretty well [facility] had just had surgery this morning. She plans to go home this afternoon. ADVANCE DIRECTIVES:: None on file Has patient been provided with info about the portal/API?: Yes Did the patient sign up for the portal?: Yes (previously) CODE STATUS:: Full Code INSURANCE COVERAGE / FINANCIAL ISSUES:: [employer]EVE CORTEZ CURRENT HOME/COMMUNITY SERVICES/EQUIPMENT:: none PRIMARY CARE PHYSICIAN:: Ton Barragan POTENTIAL DISCHARGE NEEDS:: Follow up with surgeon and discharge plan of care PATIENT/FAMILY EDUCATION NEEDS:: Review of discharge instructions, limitations, follow up plan, Ask Me Three TRANSPORTATION:: via private vehicle with family PLAN:: Viktoria will discharge home with no new services. She will follow up with her surgeon, PCP and discharge plan of care and transport with family. CM will continue to support Viktoria and her discharge planning needs.
[2020-09-21] MEDS: PIPERACILLIN/TAZO 3.375 GM in Normal Saline 50 ML IVPB (14:11)
[2020-09-21] MEDS: Normal Saline 500 ML 30 ML IV (14:11)
[2020-09-21] MEDS: Ketorolac 30 MG/ML VIAL IVP (14:19)
--- NOTE | 2020-09-21 16:50 | W.PM.DS.N ---
Date of service: 09/21/20 Time of Service: 16:51 DS: Diagnosis Discharge Diagnosis (1) Acute appendicitis: Status: Acute Discharge Plan Disposition Patient Disposition: HOME Condition: Serious Discharge Details Reason For Visit: ACUTE APPENDICITIS Admit Date/Time: 09/20/20 22:35 Admit Provider: Monica Potter Attending Provider: Monica Potter Primary Care Provider: Ton Conrad Home Meds and New Rx's Prescriptions: No Action zolpidem 10 mg tablet 10 mg PO QHS PRN (Reason: sleep) Qty: 30 RF: 0 meloxicam 7.5 mg tablet 7.5 mg PO DAILY PRNRF: 0 levothyroxine [Synthroid] 200 mcg tablet 200 mcg PO DAILY Qty: 90 RF: 3 Discharge Instructions Additional Instructions: Keep an ice bag on the incision. 20 minutes on and 20 minutes off. Ice keeps the swelling down and swelling causes pain. Make sure you wrap the ice pack in a towel and don't apply directly to the skin. -No driving x 72 hrs or of you are taking pain medications. -surgery Clinic will call in am to make an appt. -no restrictions on diet -no straining to move bowels -pain meds are very constipating: if you do not move your bowels daily take a dose of OTC milk of magnesia -It is ok to shower. No bathe, soaking, swimming or hot tubs -Keep wound clean and dry. Wash incision with soap and water daily. Pat dry, don't rub. - You may find that your appetite is smaller. Eat 3-6 small meals throughout the day. It is important to drink lots of water after surgery, 6-10 glasses a day. -We do want you up walking, at least 5-6 times per day. This is very important to prevent pneumonia and blood clots. You can climb stairs, take them slowly. -No lifting over 5 pounds x2 wks. This is very important to avoid developing a hernia in your incision. -You may find that you are very tired after surgery- this is normal. -please do not smoke for a minimum of 72 hours after surgery. Activity:: see above Equipment/Supplies:: No Equipment Needed Diet:: As Tolerated Discharge Orders Discharge Orders: Discharge Order (Routine); Ordered 09/21/20 Ordered By: Lisa Daley DS: Summary Time Spent with Patient providing and/or coordinating discharge services: Less than 30 minutes Status at Discharge Functional status at discharge: independent ambulation Overall status at discharge: patient is back to baseline Mental Status: mental status grossly normal Speech and Movement: speech and movement normal Mood: congruent mood Affect: normal affect Exam Psych Mental Status: mental status grossly normal Speech and Movement: speech and movement normal Mood: congruent mood Affect: normal affect DS: Data Vitals/I&O Vitals and I&O: Vital Signs Temperature 36.8 C 09/21/20 15:25 Temperature Source Temporal Artery Scan 09/21/20 15:25 Pulse 66 09/21/20 15:25 Pulse Rhythm Regular 09/21/20 14:36 Respiratory Rate 17 09/21/20 15:25 Respiratory Effort Non-Labored 09/20/20 23:27 Respiratory Depth Normal 09/20/20 23:27 Respiratory Pattern Normal 09/20/20 23:27 Blood Pressure 109/67 09/21/20 15:25 Blood Pressure Mean 72 09/20/20 22:46 Blood Pressure Position Sitting 09/20/20 17:30 Pulse Oximetry 100 09/21/20 15:25 Respiratory End-tidal CO2 41 09/21/20 08:35 Oxygen Delivery Method Room Air 09/21/20 15:25 Oxygen Flow Rate 0 09/21/20 15:25 Pain Level 0 09/21/20 15:25 Intake & Output 09/20/20 09/21/20 09/21/20 23:59 11:59 23:59 Intake Total 1050 / 1060 2540 / 3640 1100 / 3640 Output Total Balance 1050 / 1060 2530 / 3630 1100 / 3630 Weight 122.8 kg Intake: IV 1050 / 1060 1510 / 2060 550 / 2060 Oral 1030 / 1580 550 / 1580 Output: Urine 10 10 Other: Urine Color Yellow Urine Appearance Clear Comment patient flushed toilet; urine not visualized by RN Per patient she voided in the toliet in the bathroom. Unknown amount. Emesis Description None Voiding Methods Toilet Toilet Toilet Data Completed and Pending Labs on day of discharge: Labs from last 24 hours 09/20/20 09/20/20 09/20/20 23:03 18:05 18:00 WBC 16.30 H D RBC 4.23 Hgb 13.5 Hct 40.3 MCV 95.3 H MCH 31.9 MCHC 33.5 RDW 11.6 L Plt Count 338 MPV 10.3 Immature Gran % 0.4 Neutrophils % 86.3 Lymphocytes % 9.3 Monocytes % 3.6 Eosinophils % 0.2 Basophils % 0.2 Nucleated RBC % 0 Absolute Neutrophils 14.07 H Absolute Lymphocytes 1.52 Absolute Monocytes 0.59 Absolute Eosinophils 0.03 Absolute Basophils 0.03 Sodium Potassium Chloride Carbon Dioxide Anion Gap BUN Creatinine Estimated GFR/1.73 m2 Glucose Calcium Total Bilirubin AST ALT Alkaline Phosphatase Total Protein Albumin Lipase TSH Free T4 Urine Color Cancelled Urine Clarity Cancelled Urine pH Cancelled Ur Specific [place] Cancelled Urine Protein Cancelled Urine Ketones Cancelled Urine Blood Cancelled Urine Nitrite Cancelled Urine Bilirubin Cancelled Urine Urobilinogen Cancelled Ur Leukocyte Esterase Cancelled Urine Glucose Cancelled COVID-19 Source Nasal/nares SARS-CoV-2 (PCR) Negative 09/20/20 18:00 WBC RBC Hgb Hct MCV MCH MCHC RDW Plt Count MPV Immature Gran % Neutrophils % Lymphocytes % Monocytes % Eosinophils % Basophils % Nucleated RBC % Absolute Neutrophils Absolute Lymphocytes Absolute Monocytes Absolute Eosinophils Absolute Basophils Sodium 140 Potassium 3.5 Chloride 103 Carbon Dioxide 29.0 Anion Gap 8.0 BUN 18 Creatinine 0.8 Estimated GFR/1.73 m2 >= 60.00 Glucose 113 H Calcium 9.3 Total Bilirubin 0.5 AST 18 ALT 23 Alkaline Phosphatase 83 Total Protein 7.8 Albumin 3.9 Lipase 94 TSH 8.40 H Free T4 1.05 Urine Color Urine Clarity Urine pH Ur Specific [place] Urine Protein Urine Ketones Urine Blood Urine Nitrite Urine Bilirubin Urine Urobilinogen Ur Leukocyte Esterase Urine Glucose COVID-19 Source SARS-CoV-2 (PCR) COUNTS INCLUDE 234 BEDS AT [facility] Medical History (Updated 09/21/20 @ 06:01 by Monica Potter MD) Anxiety Contact dermatitis History of difficulty sleeping HPV test positive 2016, 2017. + HR HPV, Nl pap. 06/12/18 colpo directed bx. Hypothyroidism Plantar fasciitis, bilateral Surgical History (Updated 09/21/20 @ 05:59 by Monica Potter MD) Colonoscopy - MAC (12/19/17) H/O radioactive iodine thyroid ablation History of bilateral ligation of fallopian tubes Hx of oophorectomy Ligation of fallopian tube Status post endometrial ablation 2006 Family History Mother Essential hypertension Heart disease A-FIB Father , 84 Diabetes Essential hypertension Personal history of malignant neoplasm PROSTATE Heart disease Sister , 61 Personal history of malignant neoplasm COLON Paternal Grandfather No problems noted. Social History Smoking/Tobacco Use Status: Never Smoking risk assessment performed?: Yes Alcohol Intake: current Alcohol Intake frequency: a few times a month Drug use: Never Substance use type: does not use Caregiver/Support person: No Household members: none Housing: house Communication Needs: None Do you need help understanding health information?: Never Pets and animals: No Current gender identity: decline to answer What is your relationship status?: How often do you talk on the phone with friends or family?: decline to answer How often do you get together with friends or relatives?: decline to answer How often do you attend scientology or amish services?: decline to answer Do you belong to any clubs or organized social groups?: decline to answer Panel score (0-1 are the most socially isolated patients): 0 What type of physical activity do you participate in: decline to answer Duration: 15-30 minutes/day Frequency: 3-4 times per week Fang/Roman Catholic: No preference Special fang needs: No Seatbelt use: always Helmet use: Yes Drive intox or ride w/intox concrete mixing truck driver: No Do you feel safe at home: Yes Do you feel safe in your relationship?: Yes Female Reproductive History Menstrual Menopause type: natural History History 3 Para Hx # Term Pregnancies 3 Multiple births Hx # Pregnancies Ectopic pregnancies AB induced Hx Number of Living Children AB spontaneous
--- NOTE | 2020-09-21 16:51 | W.PM.PROGNOT ---
Date of Service Date of service: 09/21/20 Time of Service: 16:51 Assessment and Plan Assessment and plan (1) S/P laparoscopic appendectomy: Status: Acute Assessment and plan: pt d/c'ed home see d/c instructions Rx ultram/ibuprofen will call w/ appt return to ED if bleeding/fevers/leg pain /swellingor infections Subjective Subjective Interval history since last seen: Pt is doing well since her lap appy this am. She says her pain is much better. She tolerating clears and crackers. She is passing gas. She is not coughing anything up. She does not have a sore throat. She is able to urinate w/ no burning. She is up walking around and passing gas. Pt is doing well. no headaches. No CP or SOB. no productive cough. no dysuria. no leg pain or swelling. Exam Narrative Exam Narrative: HEENT: no jaundice. no eye pain/drainage/redness/swelling. Mild sore throat Cardio- NSR no chest pain, BP stable. Pulm: no sob or productive cough. no hemoptysis Incision- clean/dry. Dressing intact no excessive bleeding or drainage LE: no C/C/E Objective Last Vital Signs Temp 36.8 C 09/21/20 15:25 Pulse 66 09/21/20 15:25 Resp 17 09/21/20 15:25 BP 109/67 09/21/20 15:25 Pulse Ox 100 09/21/20 15:25 Laboratory Results - last 24 hr 09/20/20 09/20/20 09/20/20 18:00 18:00 18:05 WBC 16.30 H D RBC 4.23 Hgb 13.5 Hct 40.3 MCV 95.3 H MCH 31.9 MCHC 33.5 RDW 11.6 L Plt Count 338 MPV 10.3 Immature Gran % 0.4 Neutrophils % 86.3 Lymphocytes % 9.3 Monocytes % 3.6 Eosinophils % 0.2 Basophils % 0.2 Nucleated RBC % 0 Absolute Neutrophils 14.07 H Absolute Lymphocytes 1.52 Absolute Monocytes 0.59 Absolute Eosinophils 0.03 Absolute Basophils 0.03 Sodium 140 Potassium 3.5 Chloride 103 Carbon Dioxide 29.0 Anion Gap 8.0 BUN 18 Creatinine 0.8 Estimated GFR/1.73 m2 >= 60.00 Glucose 113 H Calcium 9.3 Total Bilirubin 0.5 AST 18 ALT 23 Alkaline Phosphatase 83 Total Protein 7.8 Albumin 3.9 Lipase 94 TSH 8.40 H Free T4 1.05 Urine Color Cancelled Urine Clarity Cancelled Urine pH Cancelled Ur Specific [place] Cancelled Urine Protein Cancelled Urine Ketones Cancelled Urine Blood Cancelled Urine Nitrite Cancelled Urine Bilirubin Cancelled Urine Urobilinogen Cancelled Ur Leukocyte Esterase Cancelled Urine Glucose Cancelled COVID-19 Source SARS-CoV-2 (PCR) 09/20/20 23:03 WBC RBC Hgb Hct MCV MCH MCHC RDW Plt Count MPV Immature Gran % Neutrophils % Lymphocytes % Monocytes % Eosinophils % Basophils % Nucleated RBC % Absolute Neutrophils Absolute Lymphocytes Absolute Monocytes Absolute Eosinophils Absolute Basophils Sodium Potassium Chloride Carbon Dioxide Anion Gap BUN Creatinine Estimated GFR/1.73 m2 Glucose Calcium Total Bilirubin AST ALT Alkaline Phosphatase Total Protein Albumin Lipase TSH Free T4 Urine Color Urine Clarity Urine pH Ur Specific [place] Urine Protein Urine Ketones Urine Blood Urine Nitrite Urine Bilirubin Urine Urobilinogen Ur Leukocyte Esterase Urine Glucose COVID-19 Source Nasal/nares SARS-CoV-2 (PCR) Negative
--- NOTE | 2020-09-21 16:56 | W.PM.DS.N ---
DS: Diagnosis Discharge Diagnosis (1) Acute appendicitis: Status: Acute Discharge Plan Disposition Patient Disposition: HOME Condition: Serious Discharge Details Reason For Visit: ACUTE APPENDICITIS Admit Date/Time: 09/20/20 22:35 Admit Provider: Monica Potter Attending Provider: Monica Potter Primary Care Provider: Ton Conrad Home Meds and New Rx's Prescriptions: New tramadol [Ultram] 50 mg tablet 50 mg PO Q6H PRNQty: 7 RF: 0 ibuprofen 600 mg tablet 600 mg PO Q6H PRNQty: 60 RF: 3 Continued zolpidem 10 mg tablet 10 mg PO QHS PRN (Reason: sleep) Qty: 30 RF: 0 meloxicam 7.5 mg tablet 7.5 mg PO DAILY PRNRF: 0 levothyroxine [Synthroid] 200 mcg tablet 200 mcg PO DAILY Qty: 90 RF: 3 Discharge Instructions Additional Instructions: Keep an ice bag on the incision. 20 minutes on and 20 minutes off. Ice keeps the swelling down and swelling causes pain. Make sure you wrap the ice pack in a towel and don't apply directly to the skin. -No driving x 72 hrs or of you are taking pain medications. -surgery Clinic will call in am to make an appt. -no restrictions on diet -no straining to move bowels -pain meds are very constipating: if you do not move your bowels daily take a dose of OTC milk of magnesia -It is ok to shower. No bathe, soaking, swimming or hot tubs -Keep wound clean and dry. Wash incision with soap and water daily. Pat dry, don't rub. - You may find that your appetite is smaller. Eat 3-6 small meals throughout the day. It is important to drink lots of water after surgery, 6-10 glasses a day. -We do want you up walking, at least 5-6 times per day. This is very important to prevent pneumonia and blood clots. You can climb stairs, take them slowly. -No lifting over 5 pounds x2 wks. This is very important to avoid developing a hernia in your incision. -You may find that you are very tired after surgery- this is normal. -please do not smoke for a minimum of 72 hours after surgery. -Do not take Meloxicam if you are taking ibuprofen Caring for Your Incision You?ll need to help care for your incision after surgery and certain medical procedures. To close an incision, your healthcare provider used stitches (sutures), special strips of surgical tape called Steri-Strips, surgical yasmin, or surgical skin glue. Follow the tips on this sheet to help stop bleeding, speed healing, and prevent infection of your incision. Pain Control Use ice! Ice keeps the swelling down and swelling is what causes pain. Never apply ice directly to the skin. Wrap it in a towel or cloth. Apply ice 20 minutes on and 20 minutes off for pain control. Use as needed. Take tylenol 500 mg by mouth with food every 4 hours as needed for pain. Or ibuprofen 600 mg by mouth with food every 6 hours as needed for pain. Do not take tylenol if you have a history of heavy drinking , hepatits C or liver problems. Do not take ibuprofen if you have a history of stomach ulcers/problems, bleeding problem or kidney issues. Home care ? Always wash your hands before touching your incision. ? Keep the incision clean, dry, and out of water, keep the incision out of water. ? Do not to pick at the scabs. Scabs help protect the wound. ? You can take a shower in 24 hours and wash the incision with soap and water. Pat dry/don?t scrub. It?s OK to wash around the incision. But don?t spray water directly on it. ? Pat stitches dry if they get wet. Don't rub. ? Check the incision site daily for pain, redness, drainage, swelling, or separation of the incision edges. ? If there is a bandage (dressing) over the incision, change this every 24 hours as instructed by your provider. Using clean hands change the dressing as directed by your healthcare provider. Always wash your hands before changing your dressing. ? Make sure any clothing that touches the incision is loose-fitting. This will prevent rubbing. If the incision is on the head, keep your child from wearing caps or other head coverings. These may rub against the incision. ? Try to avoid from rough play, contact sports, or physical activities for two weeks. This can put you at risk of opening the incision. ? Make sure you avoid doing things that could cause dirt or sweat to get in or on the incision. As your incision heals, the skin may appear pink or red. It may also feel slightly bumpy or raised. This is called a healing ridge. Over time, the color should fade and the raised skin will become less noticeable. When to seek medical care Call your healthcare provider right away if you have any of these: ? More pain, redness, swelling, bleeding, or foul-smelling discharge around the incision area ? Fever of 101?F (38.3?C) or higher, or as directed by your child's healthcare provider ? Shaking chills ? Vomiting or nausea that doesn?t go away ? Numbness, coldness, or tingling around the incision area, or changes in skin color ? Opening of the sutures or wound Stitches or yasmin come apart or fall out or surgical tape falls off before 7 days, or as directed by your healthcare provider Activity:: see above Equipment/Supplies:: No Equipment Needed Diet:: As Tolerated Discharge Orders Discharge Orders: Discharge Order (Routine); Ordered 09/21/20 Ordered By: Lisa Daley DS: Summary Time Spent with Patient providing and/or coordinating discharge services: Less than 30 minutes Status at Discharge Functional status at discharge: independent ambulation Overall status at discharge: patient is back to baseline Mental Status: mental status grossly normal Speech and Movement: speech and movement normal Mood: congruent mood Affect: normal affect Exam Psych Mental Status: mental status grossly normal Speech and Movement: speech and movement normal Mood: congruent mood Affect: normal affect DS: Data Vitals/I&O Vitals and I&O: Vital Signs Temperature 36.8 C 09/21/20 15:25 Temperature Source Temporal Artery Scan 09/21/20 15:25 Pulse 66 09/21/20 15:25 Pulse Rhythm Regular 09/21/20 14:36 Respiratory Rate 17 09/21/20 15:25 Respiratory Effort Non-Labored 09/20/20 23:27 Respiratory Depth Normal 09/20/20 23:27 Respiratory Pattern Normal 09/20/20 23:27 Blood Pressure 109/67 09/21/20 15:25 Blood Pressure Mean 72 09/20/20 22:46 Blood Pressure Position Sitting 09/20/20 17:30 Pulse Oximetry 100 09/21/20 15:25 Respiratory End-tidal CO2 41 09/21/20 08:35 Oxygen Delivery Method Room Air 09/21/20 15:25 Oxygen Flow Rate 0 09/21/20 15:25 Pain Level 0 09/21/20 15:25 Intake & Output 09/20/20 09/21/20 09/21/20 23:59 11:59 23:59 Intake Total 1050 / 1060 2540 / 3640 1100 / 3640 Output Total Balance 1050 / 1060 2530 / 3630 1100 / 3630 Weight 122.8 kg Intake: IV 1050 / 1060 1510 / 2060 550 / 2060 Oral 1030 / 1580 550 / 1580 Output: Urine Other: Urine Color Yellow Urine Appearance Clear Comment patient flushed toilet; urine not visualized by RN Per patient she voided in the toliet in the bathroom. Unknown amount. Emesis Description None Voiding Methods Toilet Toilet Toilet Data Completed and Pending Labs on day of discharge: Labs from last 24 hours 09/20/20 09/20/20 09/20/20 23:03 18:05 18:00 WBC 16.30 H D RBC 4.23 Hgb 13.5 Hct 40.3 MCV 95.3 H MCH 31.9 MCHC 33.5 RDW 11.6 L Plt Count 338 MPV 10.3 Immature Gran % 0.4 Neutrophils % 86.3 Lymphocytes % 9.3 Monocytes % 3.6 Eosinophils % 0.2 Basophils % 0.2 Nucleated RBC % 0 Absolute Neutrophils 14.07 H Absolute Lymphocytes 1.52 Absolute Monocytes 0.59 Absolute Eosinophils 0.03 Absolute Basophils 0.03 Sodium Potassium Chloride Carbon Dioxide Anion Gap BUN Creatinine Estimated GFR/1.73 m2 Glucose Calcium Total Bilirubin AST ALT Alkaline Phosphatase Total Protein Albumin Lipase TSH Free T4 Urine Color Cancelled Urine Clarity Cancelled Urine pH Cancelled Ur Specific [place] Cancelled Urine Protein Cancelled Urine Ketones Cancelled Urine Blood Cancelled Urine Nitrite Cancelled Urine Bilirubin Cancelled Urine Urobilinogen Cancelled Ur Leukocyte Esterase Cancelled Urine Glucose Cancelled COVID-19 Source Nasal/nares SARS-CoV-2 (PCR) Negative 09/20/20 18:00 WBC RBC Hgb Hct MCV MCH MCHC RDW Plt Count MPV Immature Gran % Neutrophils % Lymphocytes % Monocytes % Eosinophils % Basophils % Nucleated RBC % Absolute Neutrophils Absolute Lymphocytes Absolute Monocytes Absolute Eosinophils Absolute Basophils Sodium 140 Potassium 3.5 Chloride 103 Carbon Dioxide 29.0 Anion Gap 8.0 BUN 18 Creatinine 0.8 Estimated GFR/1.73 m2 >= 60.00 Glucose 113 H Calcium 9.3 Total Bilirubin 0.5 AST 18 ALT 23 Alkaline Phosphatase 83 Total Protein 7.8 Albumin 3.9 Lipase 94 TSH 8.40 H Free T4 1.05 Urine Color Urine Clarity Urine pH Ur Specific [place] Urine Protein Urine Ketones Urine Blood Urine Nitrite Urine Bilirubin Urine Urobilinogen Ur Leukocyte Esterase Urine Glucose COVID-19 Source SARS-CoV-2 (PCR) FORMERLY [facility], [facility] Medical History (Updated 09/21/20 @ 06:01 by Monica Potter MD) Anxiety Contact dermatitis History of difficulty sleeping HPV test positive 2017, 2018. + HR HPV, Nl pap. 06/12/18 colpo directed bx. Hypothyroidism Plantar fasciitis, bilateral Surgical History (Updated 09/21/20 @ 05:59 by Monica Potter MD) Colonoscopy - MAC (12/19/17) H/O radioactive iodine thyroid ablation History of bilateral ligation of fallopian tubes Hx of oophorectomy Ligation of fallopian tube Status post endometrial ablation 2006 Family History Mother Essential hypertension Heart disease A-FIB Father , 84 Diabetes Essential hypertension Personal history of malignant neoplasm PROSTATE Heart disease Sister , 61 Personal history of malignant neoplasm COLON Paternal Grandfather No problems noted. Social History Smoking/Tobacco Use Status: Never Smoking risk assessment performed?: Yes Alcohol Intake: current Alcohol Intake frequency: a few times a month Drug use: Never Substance use type: does not use Caregiver/Support person: No Household members: none Housing: house Communication Needs: None Do you need help understanding health information?: Never Pets and animals: No Current gender identity: decline to answer What is your relationship status?: How often do you talk on the phone with friends or family?: decline to answer How often do you get together with friends or relatives?: decline to answer How often do you attend episcopal or restoration services?: decline to answer Do you belong to any clubs or organized social groups?: decline to answer Panel score (0-1 are the most socially isolated patients): 0 What type of physical activity do you participate in: decline to answer Duration: 15-30 minutes/day Frequency: 3-4 times per week Fang/Holiness: No preference Special fang needs: No Seatbelt use: always Helmet use: Yes Drive intox or ride w/intox driver/guide: No Do you feel safe at home: Yes Do you feel safe in your relationship?: Yes Female Reproductive History Menstrual Menopause type: natural History History 3 Para Hx # Term Pregnancies 3 Multiple births Hx # Pregnancies Ectopic pregnancies AB induced Hx Number of Living Children AB spontaneous
== END 2020-09-21 17:51 | disposition home or self-care (01) | DRG 343 ==
LOC: ER 18:25 → MS 23:21
PROVIDERS: Admitting Provider Surgery; Emergency Provider Physician Assistant; PCP Family Medicine; Visit Provider Surgery
PROC: 0DTJ4ZZ Resection of Appendix, Percutaneous Endoscopic Approach (ICD-10-PCS; CPT 44970; principal; 2020-09-21 05:50)
DX: K35.890 Other acute appendicitis without perforation or gangrene (principal); N94.89 Other specified conditions associated with female genital organs and menstrual cycle; F41.9 Anxiety disorder, unspecified; E03.9 Hypothyroidism, unspecified; M72.2 Plantar fascial fibromatosis; Z20.822 Contact with and (suspected) exposure to COVID-19
CPT/HCPCS: 44970; 36415; 80053; 83690; 87635; 96361; 96365; 96375; 96376; 99222; 99238; 99285; NC; 74177; 81003; 84439; 84443; 85025; 88304; J0131; J1100; J1885; J2001; J2405; J2543; J2704; J3490

== ENCOUNTER 2021-02-12 08:33 | Outpatient (CLI) | payer BC, SELFPAY ==
--- NOTE | 2021-02-12 08:15 | DI.RAD_ITS ---
Exam(s) XR WRIST LT COMP NAVICULAR EXAM: XR WRIST LT COMP NAVICULAR CLINICAL HISTORY: left wrist pain. TECHNIQUE: 2D digital imaging was performed. COMPARISON: No exams were available for comparison FINDINGS: BONES: No acute fracture is present. No bony destructive lesion is seen. JOINTS: The carpal bones are normally aligned. SOFT TISSUE: Normal. IMPRESSION: No acute abnormality. DATA REPOSITORY: RADIATION DOSE DELIVERED:
== END 2021-02-12 08:34 | disposition home or self-care (01) ==
LOC: DIORS 08:33
PROVIDERS: PCP Nurse Practitioner Family; Referring Provider Nurse Practitioner Family; Visit Provider Physician Assistant
DX: M25.532 Pain in left wrist (principal)
CPT/HCPCS: 73110

== ENCOUNTER 2021-03-31 17:34 | Outpatient (REF) | payer BC, SELFPAY | END 2021-03-31 17:35 | disposition home or self-care (01) | LOC: LBN 17:34 | PROVIDERS: PCP Nurse Practitioner Family; Visit Provider Physician Assistant Medical | DX: R30.0 Dysuria (principal) | CPT/HCPCS: 87077; 87086; 87186 ==

== ENCOUNTER 2021-04-24 04:11 | Outpatient (CLI) | payer BC, SELFPAY ==
[2021-04-24 13:39] LABS: TSH 2.21 uIU/mL (0.36-3.74)
== END 2021-04-24 04:12 | disposition home or self-care (01) ==
LOC: LBO 04:12
PROVIDERS: PCP Nurse Practitioner Family; Visit Provider Nurse Practitioner Family
DX: E03.9 Hypothyroidism, unspecified (principal)
CPT/HCPCS: 36415; 84443

== ENCOUNTER → 2021-10-24 00:32 | Outpatient (CLI) | payer BC, SELFPAY ==
--- NOTE | 2021-10-24 06:45 | DI.MAMMO_ITS ---
Exam(s) MAMMO SCREENING EXAM: MAMMO SCREENING CLINICAL HISTORY: screening,z12.39 TECHNIQUE: Mammograms were interpreted according to the usual protocol including computer analysis w [employer] CAD system, tomosynthesis and C-view imaging. COMPARISON: 2013 through 2020 FINDINGS: The breasts are composed of heterogeneously dense fibroglandular densities, Breast Density category C . No suspicious masses or suspicious microcalcifications are seen. Coarse benign calcifications in bot h breasts. Mild scarring of upper outer quadrant right breast. Stable nodules both breasts. No skin thickening or abnormal axillary lymph nodes are seen. There has been no significant change from prior exams. IMPRESSION: BI-RADS Cat 2 - Benign Findings Yearly screening mammography is recommended. Breast Density Category C, heterogeneously Dense. The mammogram demonstrates the patient's breast tissue is dense. Dense breast tissue is very common a nd is not abnormal but dense breast tissue can make it harder to find cancer on a mammogram. Also, de nse breast tissue may increase breast cancer risk. This information about the result of the mammogram report was provided to the patient to raise their awareness. Use this report when you speak with the patient about their risks for breast cancer, which includes their family history. At that time, you may recommend additional screening tests (Ultrasound or MRI) as they might be useful based on their r isk. A negative radiographic report should not delay biopsy if a dominant or clinically suspicious mass is present. Up to ten percent of cancers are not identified on mammography. A negative report may reinforce clinical impression. Adenosis and dense breasts may obscure an underlying neoplasm. False positive reports average 6 to 10%.
== END ==
PROVIDERS: PCP Nurse Practitioner Family; Visit Provider Nurse Practitioner Family
DX: Z12.31 Encounter for screening mammogram for malignant neoplasm of breast (principal); R92.1 Mammographic calcification found on diagnostic imaging of breast
CPT/HCPCS: 77063; 77067

== ENCOUNTER 2021-10-31 02:47 | Outpatient (CLI) | payer BC, SELFPAY ==
[2021-10-31 07:40] LABS: Hemoglobin A1C 5.5 % (<5.7)
[2021-10-31 08:21] LABS: Calculated LDL 85 mg/dL (<100); Cholesterol 162 mg/dL (<200); HDL Cholesterol 68 mg/dL (40-60); Triglyceride 49 mg/dL (<150)
== END 2021-10-31 02:48 | disposition home or self-care (01) ==
LOC: LBO 02:47
PROVIDERS: PCP Nurse Practitioner Family; Visit Provider Nurse Practitioner Family
DX: Z13.220 Encounter for screening for lipoid disorders (principal); Z13.1 Encounter for screening for diabetes mellitus
CPT/HCPCS: 36415; 80061; 83036

== ENCOUNTER 2022-10-23 02:17 | Outpatient (CLI) | payer BC, SELFPAY ==
[2022-10-23 12:03] LABS: TSH (W/Ref FT4) 1.92 uIU/mL (0.36-3.74)
== END 2022-10-23 02:18 | disposition home or self-care (01) ==
PROVIDERS: PCP Nurse Practitioner Family; Visit Provider Nurse Practitioner Family
DX: E03.9 Hypothyroidism, unspecified (principal)
CPT/HCPCS: 36415; 84443

== ENCOUNTER 2022-11-06 02:28 | Outpatient (CLI) | payer BC, SELFPAY ==
--- NOTE | 2022-11-06 08:08 | DI.MAMMO_ITS ---
Exam(s) MAMMO SCREENING EXAM: MAMMO SCREENING CLINICAL HISTORY: screening,Z12.39. TECHNIQUE: Bilateral full field digital CC and MLO mammographic images were obtained with 3D tomosyn thesis and utilizing computer aided detection (CAD). COMPARISON: Prior mammograms were reviewed. FINDINGS: There has been no significant change in the appearance and distribution of the fibroglandular tissue. Benign-appearing micro and macro calcifications are again noted bilaterally, again more prominent in the right breast and most probably associated with chronic calcified fibroadenomas. There is also a noncalcified well-defined oval nodule located medially in the right breast which is unchanged from pr ior mammograms dating back to at least 2013 and therefore benign. There are no new spiculated masses nor malignant appearing microcalcification groups. There is no significant architectural distortion nor skin thickening-retraction. IMPRESSION: No radiographic evidence of malignancy. Stable benign findings. BI-RADS Category 2 - Benign Findings Breast Density - Category C - Heterogeneously dense Breast density Category C or D implies that the patient has dense breast tissue. Dense breast tissue can make it harder to find cancer on a mammogram. Dense breast tissue is also associated with an incr eased risk of breast cancer. This information about the result of the mammogram report was provided to the patient to raise their awareness. Use this report when you speak with the patient about their risks for breast cancer, which includes their family history. At that time, you may recommend additional screening tests (Ultrasoun d or MRI) as these tests may add significant information. A negative radiographic report should not delay biopsy if a dominant or clinically suspicious mass is present. Up to ten percent of cancers are not identified on mammography. A negative report may reinforce clinical impression. Adenosis and dense breasts may obscure an underlying neoplasm. False positive reports average 6 to 10%. Patient will receive a letter notifying them of these results.
== END 2022-11-06 02:48 ==
PROVIDERS: PCP Nurse Practitioner Family; Visit Provider Nurse Practitioner Family
DX: Z12.31 Encounter for screening mammogram for malignant neoplasm of breast (principal)
CPT/HCPCS: 77063; 77067

== ENCOUNTER 2023-04-14 09:21 | Day surgery (SDC) | payer BC, SELFPAY ==
--- NOTE | 2023-04-13 18:44 | W.PM.DSUDISC ---
Date of service: 04/14/23 Time of Service: 10:51 Discharge Plan Disposition Patient Disposition: Home Condition: Good Discharge Details Reason For Visit: Screening colonoscopy Attending Provider: Giancarlo Sellers Primary Care Provider: Bill Cotton Home Meds and New Rx's Prescriptions: Continued zolpidem 5 mg tablet 5 mg PO QHS PRN (Reason: sleep) Qty: 90 0RF Patient Comments: 6 months ago cholecalciferol (vitamin D3) 125 mcg (5,000 unit) capsule 125 mcg PO DAILY albuterol sulfate 90 mcg/actuation HFA aerosol inhaler 2 puff inhalation Q6H PRN (Reason: shortness of breath or wheezing) Qty: 8.5 3RF Patient Comments: about 6 months ago ibuprofen 600 mg tablet 600 mg PO Q6H PRN (Reason: pain) Qty: 60 3RF levothyroxine [Synthroid] 200 mcg tablet 200 mcg PO DAILY Qty: 90 3RF bupropion HCl [Wellbutrin SR] 100 mg tablet sustained-release 12 hr 100 mg PO DAILY Qty: 90 0RF semaglutide (weight loss) 1.7 mg/0.75 mL pen injector 1.7 mg subcut QWEEK Qty: 3 0RF Discontinued polyethylene glycol 3350 17 gram/dose powder 238 g PO ONCE Qty: 238 0RF Rx Instructions: take per colonoscopy instructions bisacodyl [Dulcolax (bisacodyl)] 5 mg tablet,delayed release (DR/EC) 5 mg PO ONCE Qty: 4 0RF Rx Instructions: take per colonoscopy instructions Discharge Instructions Instructions: Diverticulosis (GEN), Diverticulosis Diet (GEN) Additional Instructions: Viktoria, we were able to complete your colonoscopy today without any difficulty. Your prep was excellent. I did not see any signs of tumors or polyps. Incidentally, I did see a few scattered diverticula. These are small weak spots in the colon wall that most patients accumulate with age. Have attached some general information here regarding typical management of diverticulosis. Based on your family history, you will need a follow-up colonoscopy in 5 years. 1. If tolerated, consume a soft, low fiber diet for 1-2 days. 2[address] Do not drive, drink alcohol, operate machinery, make critical decisions, or do activities that require coordination or balance for 24 hours. 3. Because air was put into your colon during the procedure, expelling air from your rectum (passing gas or farting) is normal. 4. You may not have a bowel movement for 1-3 days because of the colonoscopy prep. This is normal. 5. Go directly to the emergency room if you notice any of the following: Develop chills (warm to touch), or if you have a thermometer and your temperature is above 101 Difficulty breathing or difficultly swallowing Persistent vomiting Severe abdominal pain, other than gas cramps Severe chest pain Black, tarry stools Any bleeding ? exceeding one tablespoon 6. Call your physician if the site where your intravenous was started becomes red, swollen, painful, and warm to touch. 7. Your physician has reviewed your pre-procedure medications. Please continue to take those medications as previously ordered. You will be given specific information/education regarding any changes to your medications before leaving. Activity:: Activity as Tolerated Diet:: As Tolerated Discharge Orders Discharge Orders: Discharge Order (Routine); Ordered 04/13/23 Ordered By: Giancarlo Sellers DS: Diagnosis Discharge Diagnosis (1) Screen for colon cancer: Status: Acute Asessment and Plan: Negative screening colonoscopy; based on family history follow-up in 5 years
--- NOTE | 2023-04-13 18:45 | W.COLOREPORT ---
Date of service: 04/14/23 Time of Service: 10:53 Colonoscopy Report Date of procedure: 04/14/23 Pre-op diagnosis general: Screening colonoscopy Post-op diagnosis procedure note: other (Diverticulosis) Procedure: Colonoscopy Surgeon: Giancarlo Sellers Anesthesia Type: General:No Airway Estimated blood loss (mL): 0 Pathology: none sent Complications: None Disposition: same day Indications: Viktoria is a 62 year old woman with a family history of colon cancer, who needs another screening colonoscopy Prep: Miralax/Dulcolax Procedure Start Time: Procedure End Time: 10:38 Retraction Time: 9 Findings: Occasional sigmoid diverticula Procedure Description: After the induction of monitored anesthetic care, and with the patient in left lateral decubitus position, I began by performing an external anorectal exam.? Perineum and skin were normal, as was the anal verge.? There was no evidence of external hemorrhoids.? Next, I performed a digital rectal exam.? I did not appreciate any abnormal findings.? Next, I advanced a colonoscope into the rectal vault.? I performed retroflexion.? This appeared normal.? Using insufflation, I then advanced the colonoscope beyond the rectal folds and into the sigmoid colon before advancing towards the cecum.? The quality of the prep was excellent.? The scope was noted to be in the cecum by identification of the ileocecal valve and appendiceal orifice.? I then began withdrawing the colonoscope using repeated irrigation as necessary for full evaluation of the colonic mucosa. There were a few diverticula within the sigmoid colon. ?Once the scope was withdrawn to the level of the rectum, great care was taken to examine portions of the rectal folds.? Finally, the scope was withdrawn and the patient was brought to the same-day surgery recovery unit as the anesthetic wore off. ?The findings and instructions were shared with the patient prior to discharge. [place] Bowel Prep [place] Bowel Prep Right Colon: 2 Left Colon: 3 Transverse Colon: 3 Total Score: 8
[2023-04-14 09:51] VITALS: BP 125/74; PULSE 65; RESP 16; TEMP 36.8; O2SAT 99
[2023-04-14 10:05] VITALS: BMI 40.3
[2023-04-14] MEDS: Lactated Ringers 1,000 ML 80 ML IV (10:05)
--- NOTE | 2023-04-14 10:05 | W.ANESPRE ---
General Info Date of Service Date Performed: 04/14/23 Height: 5 ft 10 in Weight: 127.4 kg Body Mass Index (BMI): 40.3 Surgical Procedure: Operation Date: 04/14/23 10:35 Proposed Procedure Side Surgeon marguerite Sellers MD Meds Allergies and Home Medications Allergies Allergy/AdvReac Type Severity Reaction Status Date / Time No Known Allergies Allergy Verified 04/14/23 09:42 Home Medication Medication Instructions Recorded albuterol sulfate 90 mcg/actuation 2 puff inhalation Q6H PRN 08/01/21 aerosol inhaler shortness of breath or wheezing #8.5 grams ibuprofen 600 mg tablet 600 mg PO Q6H PRN pain #60 tabs 01/04/22 zolpidem 5 mg tablet 5 mg PO QHS PRN sleep #90 tabs 02/14/22 levothyroxine 200 mcg tablet 200 mcg PO DAILY #90 tab-caps 02/27/23 (Synthroid) bupropion HCl 100 mg tablet,12 hr 100 mg PO DAILY #90 tabs 03/24/23 sustained-release (Wellbutrin SR) semaglutide (weight loss) 1.7 1.7 mg (0.75 mL) subcut QWEEK #3 mL 03/28/23 mg/0.75 mL subcutaneous pen injector cholecalciferol (vitamin D3) 125 125 mcg PO DAILY 04/02/23 mcg (5,000 unit) capsule Current Visit Medications: Current Medications Generic Name Dose Route Start Last Admin Trade Name Freq PRN Reason Stop Dose Admin Hyoscyamine Sulfate 0.125 mg 04/13/23 18:47 Hyoscyamine 0.125 Mg Sl/Oral/Chew SL 05/13/23 18:46 DIRECTED PRN Ringer's Solution 1,000 mls @ 80 mls/hr 04/14/23 06:00 IV 05/11/23 23:59 INFUSION YOLIS IV Miscellaneous Supplies 1 each 04/14/23 06:00 Iv Access IV 05/11/23 23:59 DIRECTED YOLIS Ondansetron HCl 4 mg 04/13/23 18:47 Ondansetron 4 Mg/2 Ml Vial IVP 05/13/23 18:46 Q4H PRN PRN Nausea / Vomiting Sodium Chloride 0 ml 04/14/23 06:00 Normal Saline Flush 10 Ml Syr IV 05/11/23 23:59 PRN PRN Sodium Chloride 0 ml 04/14/23 06:00 Normal Saline 10 Ml Vial IJ 05/11/23 23:59 DIRECTED PRN Sterile Water 0 ml 04/14/23 06:00 Water,Injection,Sterile 10 Ml Vial IJ 05/11/23 23:59 DIRECTED PRN PFSH Active Problems Active Problems: Problem Status Onset Code Screen for colon cancer Z12.11 Heart palpitations R00.2 Obesity E66.9 Lumbosacral radiculopathy M54.17 Low back pain M54.5 HPV test positive Annual physical exam Z00.00 Sleep pattern disturbance 03/16/15 G47.20 Hypothyroidism E03.9 Family history of GI malignancy Z80.0 Depressive disorder F32.9 Medical History Medical History Contact dermatitis History of difficulty sleeping Anxiety Plantar fasciitis, bilateral Surgical History Surgical History S/P laparoscopic appendectomy (~09/20/20) Hx of oophorectomy H/O radioactive iodine thyroid ablation History of bilateral ligation of fallopian tubes Status post endometrial ablation 2006 Ligation of fallopian tube Colonoscopy - [facility] (12/19/17) Tobacco Smoking/Tobacco Use Status: Never Passive smoking exposure: Yes Second hand exposure: Yes Alcohol Alcohol Intake: current Alcohol intake frequency: holidays/special occasions only Alcohol type: wine Substance Use Substance use: Never Substance use type: does not use Details: alcohol: t-3, one glass Prental History History 3 Para Hx # Term Pregnancies 3 Multiple births Hx # Pregnancies Ectopic pregnancies AB induced Hx Number of Living Children AB spontaneous Vital Signs and Lab Results Vital Signs Most Recent Vital Signs in EMR: Most Recent Vital Signs Temp Pulse Resp BP Pulse Ox 36.8 C 65 16 125/74 99 04/14/23 09:51 04/14/23 09:51 04/14/23 09:51 04/14/23 09:51 04/14/23 09:51 Lab Results Blood Type / Crossmatch: No Data to Display Complete Blood Count: No Data to Display Complete Metabolic Panel: No Data to Display Liver Function Panel: No Data to Display Coagulation Panel: No Data to Display Cardiac Panel: No Data to Display Arterial Blood Gas: No Data to Display Venous Blood Gas: No Data to Display Pancreas Panel: No Data to Display Thyroid Panel: No Data to Display Infectious Disease: No Data to Display Blood Cultures: No Data to Display Toxicology Panel: No Data to Display Anesthesia Assessment and Plan Anesthesia History Personal History: No History of Anesthesia Complications Family History: No Family History of Anesthesia Complications Exercise Tolerance Exercise Tolerance: Metabolic Equivalents>4 Pertinent Negatives Pertinent Negatives: No Symptoms of GERD Cardiac & Pulmonary Exam Cardiac Exam: Normal S1/S2 Heart Sounds Pulmonary Exam: Clear Bilateral Breath Sounds Implantable Cardiac Device Does patient have a Pacemaker or an ICD?: No Airway Exam Known Difficult Airway: No Mallampati Class: 2 Mouth Opening: Normal (> 3cm) Thyromental Distance: Greater than 3 cm Neck Range of Motion: Full ROM Neck Circumference: Normal Teeth Condition: Normal Dentition ASA Classification ASA Score: ASA 2 Emergency Case?: No NPO Status NPO Status: NPO Clears >2 hours, Solids >8 hours Anesthesia Plan Resuscitation Status: Full Code Anesthesia Technique: General Anesthesia Airway Planned: Natural Airway Monitors Used: Standard Monitors
[2023-04-14 10:51] VITALS: BP 119/65; PULSE 65; RESP 18; TEMP 36.5; O2SAT 97
--- NOTE | 2023-04-14 10:59 | W.ANESPOSTOP ---
Postoperative Evaluation Date, Time and Location Date Performed: 04/14/23 Time Performed: 10:57 Patient Location: Day Surgery Unit Vital Signs Most Recent Imported Vital Signs: Most Recent Vital Signs Temp Pulse Resp BP Pulse Ox 36.5 C 65 18 119/65 97 04/14/23 10:51 04/14/23 10:51 04/14/23 10:51 04/14/23 10:51 04/14/23 10:51 Pain Score Most Recent Pain Score: Most Recent Pain Score Pain Level 0 04/14/23 10:51 Assessment Mental Status: Awake (Alert & Oriented to Patient Baseline) Airway and Respiratory Function: Patent airway with normal (patient baseline) respiratory exam Cardiovascular Function: Hemodynamically Stable Hydration Status: Adequately Hydrated Nausea & Vomiting: No Nausea or Vomiting Pain: Pt. Denies Any Pain Peripheral Nerve Block: Patient did not receive a nerve block
[2023-04-14 11:22] VITALS: BP 127/76; PULSE 65; RESP 18; TEMP 36.5; O2SAT 98
== END 2023-04-14 09:22 | disposition home or self-care (01) ==
LOC: SUR 09:22
PROVIDERS: PCP Nurse Practitioner Family; Visit Provider Surgery
PROC: 0DJD8ZZ Inspection of Lower Intestinal Tract, Via Natural or Artificial Opening Endoscopic (ICD-10-PCS; CPT 45378; principal; 2023-04-14 10:30)
DX: Z12.11 Encounter for screening for malignant neoplasm of colon (principal); Z80.0 Family history of malignant neoplasm of digestive organs; K57.30 Diverticulosis of large intestine without perforation or abscess without bleeding
CPT/HCPCS: 45378; J2001

== ENCOUNTER → 2023-07-30 01:24 | Outpatient (CLI) | payer BC, SELFPAY ==
--- NOTE | 2023-07-30 07:15 | DI.MRI_ITS ---
Exam(s) MR LOWER JOINT LT WO EXAM: MR LOWER JOINT LT WO CLINICAL HISTORY: LT KNEE PAIN, M25.562,? MENISCAL TEAR. TECHNIQUE: Multiplanar multisequence MRI was performed. COMPARISON: Exam interpreted without benefit of comparison plain films. FINDINGS: BONES: There is no fracture. There is small area of high signal in the medial tibial plateau near ma rginal osteophytes. degenerative versus small contusion. There are few small degenerative cysts in the central portion of the tibia, near the tibial spines. JOINTS: A moderate joint effusion is present. Articular cartilage: Patellofemoral joint: Articular cartilage is markedly thinned at the lateral pa tellar facet and apex, cyst extending down to bone. Periarticular spurring. Medial femoral tibial joint: Articular cartilage is unremarkable. Lateral femoral tibial joint: Articular cartilage is unremarkable. TENDONS: Extensor mechanism: Unremarkable. Medial retinaculum: Unremarkable. Lateral retinaculum: Unremarkable. Popliteus: Unremarkable. MUSCLES: Unremarkable. MENISCI: The medial meniscus is somewhat peripherally displaced, consistent with degenerative changes. There is a linear on are high signal extending to through the on posterior horn to the superior articular s selina surface. There is also some increased stellate signal The lateral meniscus is unremarkable. SOFT TISSUES: Unremarkable. LIGAMENTS: Anterior Cruciate: Unremarkable. Posterior Cruciate: Unremarkable. Medial Collateral:Unremarkable. Lateral Collateral: Unremarkable. IMPRESSION: Superior surfacing tear in the posterior horn of the medial meniscus. Severe degenerative changes of the lateral patellofemoral joint. DATA REPOSITORY:
== END ==
PROVIDERS: PCP Nurse Practitioner Family; Visit Provider Nurse Practitioner Family
DX: M23.222 Derangement of posterior horn of medial meniscus due to old tear or injury, left knee (principal)
CPT/HCPCS: 73721

== ENCOUNTER 2023-08-19 11:54 | Outpatient (CLI) | payer BC, SELFPAY ==
--- NOTE | 2023-08-19 11:59 | W.CARDEVENT ---
Date of service: 08/19/23 Time of Service: 11:59 Cardiac Event Recorder Referring Provider:: Bill Cotton Indications:: Palpitations Cardiac Event Note: This is a cardiac event monitor ordered for palpitations. Patient was monitored for 29 days and 10 hours Rhythm throughout was sinus. Average heart rate was 73. Minimum was 59, maximum 109 There were no significant atrial or ventricular dysrhythmias. There was no atrial fibrillation, no high-grade AV block, no pauses greater than 3 seconds. Symptoms were reported which corresponded to sinus rhythm
== END 2023-08-19 11:55 | disposition home or self-care (01) ==
LOC: CARDOPNVT 11:54
PROVIDERS: PCP Nurse Practitioner Family; Visit Provider Internal Medicine Cardiovascular Disease
DX: R00.2 Palpitations (principal)
CPT/HCPCS: 93270

== ENCOUNTER 2023-08-25 13:22 | Outpatient (CLI) | payer BC, SELFPAY ==
--- NOTE | 2023-08-25 08:00 | DI.RAD_ITS ---
Exam(s) XR KNEE LT 3V AP,LAT,ELIZABETH EXAM: XR KNEE LT 3V AP,LAT,ELIZABETH CLINICAL HISTORY: LEFT KNEE PAIN. TECHNIQUE: 2D digital imaging was performed of the left knee. Three images were obtained. AP, late ral and PA tunnel views were obtained. COMPARISON: CR LEFT KNEE COMPLETE from 09/10/2007 CR KNEES BILAT MERCHANT VIEW from 11/02/2009 FINDINGS: BONES: No acute fracture is present. No bony destructive lesion is seen. There are enthesophytes at the anterior patella. JOINTS: There is mild narrowing of the medial femoral tibial joint. Osteophytes are seen involving a ll 3 joint compartments. No significant joint effusion is seen. No loose body. SOFT TISSUE: Normal. IMPRESSION: [id number] arthrosis of the knee. DATA REPOSITORY: RADIATION DOSE DELIVERED:
== END 2023-08-25 13:23 | disposition home or self-care (01) ==
LOC: DIORS 13:22
PROVIDERS: PCP Nurse Practitioner Family; Visit Provider Student in an Organized Health Care Education/Training Program
DX: M17.12 Unilateral primary osteoarthritis, left knee (principal)
CPT/HCPCS: 73562

== ENCOUNTER 2024-03-22 02:51 | Outpatient (CLI) | payer BC, SELFPAY ==
[2024-03-22 09:17] LABS: HGB 13.4 g/dL (11.2-15.7); MCH 31.2 pg (27.0-33.0); MCHC 32.7 % (32.0-36.0); MCV 96 fL (80-95); MPV 10.3 fL (8.0-11.0); Platelet Count 316 10^3/uL (130-400); RBC 4.29 10^6/uL (3.93-5.22); RDW 11.9 % (11.7-14.6); RDW-SD 41.5 fL; WBC 7.21 10^3/uL (4.4-10.8)
[2024-03-22 09:37] LABS: Anion Gap 9.8 mmol/L (3-11); BUN 13 mg/dL (7-18); CO2 29.2 mmol/L (21.0-32.0); CREATININE 0.7 mg/dL (0.55-1.02); Calcium 9.5 mg/dL (8.5-10.1); Chloride 107 mmol/L (98-107); Estimated GFR 97.72 (mL/min/1.73m2); Glucose 98 mg/dL (74-106); Potassium 4.2 mmol/L (3.5-5.1); Sodium 146 mmol/L (136-145)
[2024-03-22 09:49] LABS: Calculated LDL 80 mg/dL (<100); Cholesterol 169 mg/dL (<200); HDL Cholesterol 80 mg/dL (40-60); Magnesium 2.1 mg/dL (1.8-2.4); Triglyceride 45 mg/dL (<150)
== END 2024-03-22 02:52 | disposition home or self-care (01) ==
LOC: LBO 02:51
PROVIDERS: PCP Nurse Practitioner Family; Visit Provider Student in an Organized Health Care Education/Training Program
DX: E03.9 Hypothyroidism, unspecified (principal); Z13.220 Encounter for screening for lipoid disorders; R25.2 Cramp and spasm; M17.12 Unilateral primary osteoarthritis, left knee; Z01.818 Encounter for other preprocedural examination
CPT/HCPCS: 36415; 80048; 80061; 85027; 83735; 84443

== ENCOUNTER 2024-03-22 14:12 | Outpatient (CLI) | payer BC, SELFPAY ==
--- NOTE | 2024-03-22 08:00 | DI.RAD_ITS ---
Exam(s) XR STANDING ALIGNMENT EXAM: XR STANDING ALIGNMENT CLINICAL HISTORY: TKR Planning. TECHNIQUE: 2D digital imaging was performed. COMPARISON: CR XR KNEE LT 3V AP,LAT,ELIZABETH from 08/25/2023 FINDINGS: 3 views Moderate degenerative changes in the left knee appear unchanged from 08/25/2023 images. Similar mode rate degenerative changes noted in the opposite-right knee. Relatively symmetrical. Both hips appear unremarkable as do the sacroiliac joints. Ankles unremarkable. Bone density normal . No osseous lesions. IMPRESSION: Relatively symmetrical moderate degenerative changes in both knees. DATA REPOSITORY: RADIATION DOSE DELIVERED:
== END 2024-03-22 14:13 | disposition home or self-care (01) ==
LOC: DIORS 14:12
PROVIDERS: PCP Nurse Practitioner Family; Visit Provider Physician Assistant
DX: M17.12 Unilateral primary osteoarthritis, left knee (principal)
CPT/HCPCS: 77073

== ENCOUNTER 2024-04-07 08:19 | Day surgery (SDC) | payer BC, SELFPAY ==
[2024-04-07] VITALS (34 sets, daily range): BP systolic 123–151; BP diastolic 56–77; PULSE 55–79; RESP 10–21; TEMP 35.8–36.6; O2SAT 93–100; BMI 40.7
--- NOTE | 2024-04-07 | DI.RAD_ITS ---
Exam(s) XR KNEE LT 2V AP,LAT EXAM: XR KNEE LT 2V AP,LAT CLINICAL HISTORY: intraop tibial fracture, TKA. TECHNIQUE: 2D digital imaging was performed. COMPARISON: CR XR KNEE LT 3V AP,LAT,ELIZABETH from 08/25/2023 FINDINGS: Two postop views. Satisfactory position alignment of the components of the newly placed left knee prosthesis. No fract ure or loosening evident. IMPRESSION: Satisfactory postop appearance. DATA REPOSITORY: RADIATION DOSE DELIVERED:
--- NOTE | 2024-04-07 07:25 | PDOC.DSDIS_ITS ---
Date of service: 04/07/24 Time of Service: 07:25 Discharge Plan Disposition Patient Disposition: Home Condition: Good Discharge Details Reason For Visit: L TKR Attending Provider: Eamon Mcrae Primary Care Provider: Bill Cotton Home Meds and New Rx's Prescriptions: New acetaminophen 500 mg tablet 1,000 mg PO TID Qty: 90 3RF aspirin 81 mg tablet,delayed release (DR/EC) 81 mg PO BID Qty: 60 0RF celecoxib 200 mg capsule 200 mg PO BID Qty: 60 0RF hydromorphone 2 mg tablet 1 - 2 mg PO Q4H PRN (Reason: pain) Qty: 20 0RF pantoprazole 40 mg tablet,delayed release (DR/EC) 40 mg PO DAILY Qty: 30 0RF dexamethasone 4 mg tablet 4 mg PO DAILY Qty: 2 0RF gabapentin 300 mg capsule 300 mg PO QHS Qty: 14 0RF methocarbamol 750 mg tablet 750 mg PO TID PRN (Reason: muscle spasm) Qty: 90 0RF Continued zolpidem 5 mg tablet 5 mg PO QHS PRN (Reason: sleep) Qty: 90 0RF Patient Comments: 6 months ago cholecalciferol (vitamin D3) 125 mcg (5,000 unit) capsule 125 mcg PO DAILY albuterol sulfate 90 mcg/actuation HFA aerosol inhaler 2 puff inhalation Q6H PRN (Reason: shortness of breath or wheezing) Qty: 8.5 3RF Patient Comments: about 6 months ago levothyroxine [Synthroid] 200 mcg tablet 200 mcg PO DAILY Qty: 90 3RF bupropion HCl [Wellbutrin SR] 100 mg tablet sustained-release 12 hr 100 mg PO DAILY Qty: 90 3RF Discontinued ibuprofen 600 mg tablet 600 mg PO Q6H PRN (Reason: pain) Qty: 60 3RF Discharge Instructions Additional Instructions: Total Knee Discharge Instructions Activity: The most important activity is to walk and to work on gentle motion (both flexion and extension). You should try to take short walks a few times a day. It is important that when resting you work on keeping the knee straight. Avoid putting a pillow behind the knee as this will encourage flexion. Work on range of motion exercises as provided by Physical Therapy. - Start outpatient physical therapy within 2 weeks. - You should wear the JIMBO hose on both legs for 2 weeks. You may remove these at night. You may also use any compression sock in place of the JIMBO hose. - Utilize [employer] to review exercises, see videos on exercises and obtain basic information pertaining to your surgery and your recovery. Dressing: Remove the Taco wrap by 2 days after your surgery and put on the JIMBO stocking given to you from the hospital. Keep the surgical dressing (underneath the TACO wrap) in place for at least one week. After the first week it may be removed and replaced with light gauze and tape or nothing. The wound and dressing may get wet after 3 days but avoid soaking the dressing or otherwise it will need to be changed. Many people prefer covering the dressing with cling wrap (saran wrap) to minimize it from getting soaked. If it gets wet, just pat dry. If it starts to peel off then it will need to be changed. Medications: - You should take Tylenol and anti-inflammatory Celebrex as your primary pain control medications. If the Celebrex is too expensive or not covered, please call the office for another alternative (Advil/Ibuprofen or Naproxen/Aleve) - You have been prescribed a stronger pain medication hydrocodone for breakthrough pain, take as needed as prescribed. - You have also been prescribed a stomach acid reduction agent Pantoprozole to help reduce stomach acid and reflux. - You have been prescribed Gabapentin to take at night for restlessness and nerve pain. - You will be taking Aspirin 81mg twice a day for DVT prevention unless instructed otherwise. - You have also been prescribed Decadron to take to control post-operative nausea and pain. You will start this tomorrow. - You have also been prescribed methocarbamol to take as needed for muscle spasms. - If you have constipation you should take Colace or Miralax (both [id number]). It takes most people 3-4 days to have a bowel movement. Follow-up: 2 weeks If you have any acute concerns or questions, please do not hesitate to contact the office at [phone]. You may contact Dr. Mcrae with any questions after hours through the hospital at [phone] or on his cell phone at [phone]. Referrals: Eamon Mcrae MD [ [facility] STAFF PHYSICIAN] - Equipment/Supplies: Walker Activity:: Activity as Tolerated Shower/Bathe:: 72 hours Diet:: As Tolerated Discharge Orders Discharge Orders: Discharge Order (Routine); Ordered 04/07/24 Ordered By: Hosea Reyes
[2024-04-07] MEDS: Celecoxib 200 MG CAP 400 MG PO (08:57)
[2024-04-07] MEDS: Acetaminophen 500 MG TAB 1000 MG PO ×2 (08:57→16:11)
[2024-04-07] MEDS: Gabapentin 300 MG CAP PO (08:58)
[2024-04-07] MEDS: Lactated Ringers 1,000 ML 80 ML IV (09:24)
--- NOTE | 2024-04-07 09:40 | W.ANESPRE ---
General Info Date of Service Date Performed: 04/07/24 Height: 5 ft 10 in Weight: 128.9 kg Body Mass Index (BMI): 40.7 Surgical Procedure: Operation Date: 04/07/24 11:10 Proposed Procedure Side Surgeon p Knee Total Arthroplasty Left Eamon Mcrae MD Meds Allergies and Home Medications Allergies Allergy/AdvReac Type Severity Reaction Status Date / Time No Known Allergies Allergy Verified 04/07/24 08:51 Home Medication ?Medication ?Instructions ?Recorded albuterol sulfate 90 mcg/actuation 2 puff inhalation Q6H PRN 08/01/21 aerosol inhaler shortness of breath or wheezing #8.5 grams zolpidem 5 mg tablet 5 mg PO QHS PRN sleep #90 tabs 02/14/22 levothyroxine 200 mcg tablet 200 mcg PO DAILY #90 tab-caps 02/27/23 (Synthroid) cholecalciferol (vitamin D3) 125 125 mcg PO DAILY 04/02/23 mcg (5,000 unit) capsule bupropion HCl 100 mg tablet,12 hr 100 mg PO DAILY #90 tabs 07/02/23 sustained-release (Wellbutrin SR) acetaminophen 500 mg tablet 1,000 mg (2 x 500 mg) PO TID #90 04/07/24 tabs aspirin 81 mg tablet,delayed 81 mg PO BID #60 tabs 04/07/24 release celecoxib 200 mg capsule 200 mg PO BID #60 caps 04/07/24 dexamethasone 4 mg tablet 4 mg PO DAILY #2 tabs 04/07/24 gabapentin 300 mg capsule 300 mg PO QHS #14 caps 04/07/24 hydromorphone 2 mg tablet 1 - 2 mg (0.5 - 1 x 2 mg) PO Q4H 04/07/24 PRN pain #20 tabs methocarbamol 750 mg tablet 750 mg PO TID PRN muscle spasm #90 04/07/24 tabs pantoprazole 40 mg tablet,delayed 40 mg PO DAILY #30 tabs 04/07/24 release Current Visit Medications: Current Medications Generic Name Dose Route Start Last Admin Trade Name Freq PRN Reason Stop Dose Admin Acetaminophen 1,000 mg 04/07/24 06:00 04/07/24 08:57 Acetaminophen 500 Mg Tab PO 04/07/24 23:59 1,000 mg PREOP YOLIS Administration Acetaminophen 1,000 mg 04/07/24 07:24 Acetaminophen 500 Mg Tab PO 05/07/24 08:29 TID PRN Analgesia Celecoxib 400 mg 04/07/24 06:00 04/07/24 08:57 Celecoxib 200 Mg Cap PO 04/07/24 23:59 400 mg PREOP YOLIS Administration Docusate Sodium 100 mg 04/07/24 07:24 Docusate Sodium 100 Mg Cap PO 05/07/24 07:23 BID PRN PRN Constipation Droperidol 0.625 mg 04/07/24 09:09 Droperidol 5 Mg/2 Ml Vial IVP 05/07/24 09:08 DIRECTED PRN Nausea Ephedrine Sulfate 0 mg 04/07/24 09:09 Ephedrine 25 Mg/5 Ml Syringe IVP 05/07/24 09:08 DIRECTED PRN Fentanyl 0 mcg 04/07/24 09:09 Fentanyl 100 Mcg/2 Ml Vial IVP 05/07/24 09:08 DIRECTED PRN Gabapentin 300 mg 04/07/24 06:00 04/07/24 08:58 Gabapentin 300 Mg Cap PO 04/07/24 23:59 300 mg PREOP YOLIS Administration Hydromorphone HCl 0 mg 04/07/24 07:24 Hydromorphone 2 Mg Tab PO 05/07/24 07:23 Q3H PRN PRN Pain Hydromorphone HCl 0 mg 04/07/24 09:09 Hydromorphone 1 Mg/Ml Syr IVP 05/07/24 09:08 DIRECTED PRN Ringer's Solution 1,000 mls @ 80 mls/hr 04/07/24 06:00 04/07/24 09:24 IV 04/07/24 23:59 80 mls/hr INFUSION YOLIS Administration Cefazolin Sodium 3,000 mg/ 100 mls @ 200 mls/hr 04/07/24 06:00 Sodium Chloride IV 04/07/24 23:59 PREOP YOLIS Tranexamic Acid/Sodium Chloride 1,000 mg in 100 mls @ 600 mls/hr 04/07/24 06:00 IVPB 04/07/24 23:59 PREOP YOLIS IV Miscellaneous Supplies 1 each 04/07/24 06:00 Iv Access IV 04/07/24 23:59 DIRECTED YOLIS Naloxone HCl 0 mg 04/07/24 09:09 Naloxone 0.4 Mg/Ml Vial IVP 05/07/24 09:08 PRN PRN Ondansetron HCl 4 mg 04/07/24 07:24 Ondansetron 4 Mg/2 Ml Vial IVP 05/07/24 07:23 Q6H PRN PRN Nausea Polyethylene Glycol 17 gm 04/07/24 07:24 Polyethylene Glycol 3350 17 Gm Packet PO 05/07/24 07:23 BID PRN PRN Constipation Sodium Chloride 0 ml 04/07/24 06:00 Normal Saline Flush 10 Ml Syr IV 04/07/24 23:59 PRN PRN Sodium Chloride 0 ml 04/07/24 06:00 Normal Saline 10 Ml Vial IJ 04/07/24 23:59 DIRECTED PRN Sterile Water 0 ml 04/07/24 06:00 Water,Injection,Sterile 10 Ml Vial IJ 04/07/24 23:59 DIRECTED PRN PFSH Active Problems Active Problems: Problem Status Onset Code History of total left knee replacement Acute 04/07/24 Z96.652 Muscle cramps Acute R25.2 Screen for colon cancer Acute Z12.11 Heart palpitations Acute R00.2 Obesity Chronic E66.9 Lumbosacral radiculopathy Acute M54.17 Low back pain Acute M54.5 Annual physical exam Acute Z00.00 HPV test positive Acute Sleep pattern disturbance Acute 03/16/15 G47.20 Hypothyroidism Acute E03.9 Family history of GI malignancy Acute Z80.0 Depressive disorder Acute F32.9 Medical History Medical History Contact dermatitis History of difficulty sleeping Anxiety Plantar fasciitis, bilateral Surgical History Surgical History S/P laparoscopic appendectomy (~09/20/20) Hx of oophorectomy Pt. denies H/O radioactive iodine thyroid ablation History of bilateral ligation of fallopian tubes Status post endometrial ablation 2006 Ligation of fallopian tube Colonoscopy - [facility] [place] (03/2023) Tobacco Smoking/Tobacco Use Status: Never Passive smoking exposure: No Second hand exposure: Yes Alcohol Alcohol Intake: current Alcohol intake frequency: holidays/special occasions only Alcohol type: wine Substance Use Substance use: Never Substance use type: does not use Prental History History 3 Para Hx # Term Pregnancies 3 Multiple births Hx # Pregnancies Ectopic pregnancies AB induced Hx Number of Living Children AB spontaneous Vital Signs and Lab Results Vital Signs Most Recent Vital Signs in EMR: Most Recent Vital Signs Temp Pulse Resp BP Pulse Ox 36.3 C L 74 16 137/77 100 04/07/24 08:44 04/07/24 08:44 04/07/24 08:44 04/07/24 08:44 04/07/24 08:44 Lab Results Blood Type / Crossmatch: No Data to Display Complete Blood Count: White Blood Count 7.21 10^3/uL (4.4-10.8) 03/22/24 08:57 Red Blood Count 4.29 10^6/uL (3.93-5.22) 03/22/24 08:57 Hemoglobin 13.4 g/dL (11.2-15.7) 03/22/24 08:57 Hematocrit 41.0 % (36.0-46.0) 03/22/24 08:57 Platelet Count 316 10^3/uL (130-400) 03/22/24 08:57 Complete Metabolic Panel: Sodium 146 mmol/L (136-145) H 03/22/24 08:57 Potassium 4.2 mmol/L (3.5-5.1) 03/22/24 08:57 Chloride 107 mmol/L (98-107) 03/22/24 08:57 Carbon Dioxide 29.2 mmol/L (21.0-32.0) 03/22/24 08:57 BUN 13 mg/dL (7-18) 03/22/24 08:57 Creatinine 0.7 mg/dL (0.55-1.02) 03/22/24 08:57 Est GFR (CKD-EPI 2020) 97.72 (mL/min/1.73m2) 03/22/24 08:57 Magnesium 2.1 mg/dL (1.8-2.4) 03/22/24 08:57 Calcium 9.5 mg/dL (8.5-10.1) 03/22/24 08:57 Glucose 98 mg/dL (74-106) 03/22/24 08:57 Liver Function Panel: No Data to Display Coagulation Panel: No Data to Display Cardiac Panel: No Data to Display Arterial Blood Gas: No Data to Display Venous Blood Gas: No Data to Display Pancreas Panel: No Data to Display Thyroid Panel: Thyroid Stimulating Hormone (TSH) 1.00 uIU/mL (0.36-3.74) 03/22/24 08:57 Infectious Disease: No Data to Display Blood Cultures: No Data to Display Toxicology Panel: No Data to Display Anesthesia Assessment and Plan Anesthesia History Personal History: No History of Anesthesia Complications Family History: No Family History of Anesthesia Complications Exercise Tolerance Exercise Tolerance: Metabolic Equivalents>4 Pertinent Negatives Pertinent Negatives: No Symptoms of GERD Cardiac & Pulmonary Exam Cardiac Exam: Normal S1/S2 Heart Sounds Pulmonary Exam: Clear Bilateral Breath Sounds Implantable Cardiac Device Does patient have a Pacemaker or an ICD?: No Airway Exam Known Difficult Airway: No Mallampati Class: 2 Mouth Opening: Normal (> 3cm) Thyromental Distance: Greater than 3 cm Neck Range of Motion: Full ROM Neck Circumference: Normal Teeth Condition: Normal Dentition ASA Classification ASA Score: ASA 2 Emergency Case?: No NPO Status NPO Status: NPO Clears >2 hours, Solids >8 hours Anesthesia Plan Resuscitation Status: Full Code Anesthesia Technique: Spinal Anesthesia Airway Planned: Natural Airway Pain Management: Surgeon and patient request nerve block Monitors Used: Standard Monitors
[2024-04-07] MEDS: ceFAZolin 3,000 MG in Normal Saline 100 ML 200 MG IV (10:45)
[2024-04-07] MEDS: TRANEXAMIC ACID/SOD. CHL. 1,000 MG/100 ML BAG 600 MG IVPB (10:55)
--- NOTE | 2024-04-07 11:15 | W.ANESNERVE ---
Nerve Block Single Injection Procedure Date and Time Date Performed: 04/07/24 Procedure Start: 09:50 Location Where Procedure Performed Procedure Location: Day Surgery Unit Reason Performed: Postoperative Analgesia Requesting Provider: Eamon Mcrae Timeout Performed Timeout Performed: Yes Monitoring Used ECG, Blood Pressure, SpO2 and See EMR for corresponding vital signs Sterility Sterility: Hand Hygiene, Surgical Cap, Surgical Mask, Sterile Gloves, Eye Protection and Chlorhexidine Sedation Given During Procedure Sedation Given (Indicate Dose Given): Versed IV Dose:: 2mg IVP Patient Mental Status Patient Mental Status: Sedate with meaningful communication Nerve Block 1st Nerve Block: Laterality: Left Block Type: Adductor Canal Ultrasound Image Saved?: Yes Needle / Catheter Used: 100mm SonoPlex II Local Anesthetic Bolus (Indicate Dose Given): Ropivacaine 0.5% Dose:: 0.5%/24cc (120mg) Additives (Indicate Dose Given): Epinephrine to make 1:200,000 (5mcg/ml) Dose:: 120mcg and Decadron Dose:: 10mg PF Ultrasound: Sterile probe cover and gel used Nerve Stimulator: Not Used Paresthesia: None Procedure Tolerated: No Complications and Patient tolerated well Procedure Outcome: Successful Performed By: Alejo Lerner
[2024-04-07] MEDS: fentaNYL 100 MCG/2 ML VIAL IVP (13:17)
--- NOTE | 2024-04-07 15:19 | W.ANESPOSTOP ---
Postoperative Evaluation Date, Time and Location Date Performed: 04/07/24 Time Performed: 15:19 Patient Location: Day Surgery Unit Vital Signs Most Recent Imported Vital Signs: Most Recent Vital Signs Temp Pulse Resp BP Pulse Ox 36 C L 68 16 131/56 L 94 04/07/24 14:59 04/07/24 14:59 04/07/24 14:59 04/07/24 14:59 04/07/24 14:59 Pain Score Most Recent Pain Score: Most Recent Pain Score Pain Level 5 04/07/24 14:59 Assessment Mental Status: Arousable with meaningful communication Airway and Respiratory Function: Patent airway with normal (patient baseline) respiratory exam Cardiovascular Function: Hemodynamically Stable Hydration Status: Adequately Hydrated Nausea & Vomiting: No Nausea or Vomiting Pain: Pain is tolerable per patient Peripheral Nerve Block: Regional nerve block not resolved at time of post operative discharge
--- NOTE | 2024-04-07 16:37 | PT.INIE ---
PT Notes Visit Reasons: L TKR Physical Therapy Day Surgery Initial Evaluation Date: 04/07/2024 Referring Doctor: DARRYL Kirkland PT Orders: PT CONSULT: S/P ortho Surgery Precautions: PWB on the L LE with AD per Dr. Mcrae. Patient Profile/Admitting Diagnosis: Viktoria is a 64-year-old female with degenerative joint disease of the left knee and is status post left total knee arthroplasty on postoperative day 0. PMHX: Medical History Contact dermatitis History of difficulty sleeping Anxiety Plantar fasciitis, bilateral Surgical History S/P laparoscopic appendectomy (~09/20/20) Hx of oophorectomy H/O radioactive iodine thyroid ablation History of bilateral ligation of fallopian tubes Status post endometrial ablation 2006 Ligation of fallopian tube [place] [facility] [place] Social History/Home Situation: Lives alone in a private home with 2 steps to enter. Independent with all aspects of ADLs prior to surgery. Equipment Owned/DME: [facility] Subjective: Reported pain at 3-4/10 that minimally affected mobility performance Objective: General Observation: VERONICA wraps to left LE. Cryo/Cuff to left knee. Mental Status: A and O x 4 Pain: 3-4/10 on thelateral knee ROM: Right Lower Extremity: Hip flexion WFL. Hip abduction WFL. Knee flexion 20 degrees to 90 degrees. Knee extension -20 degrees. Ankle dorsiflexion WFL. Ankle plantarflexion WFL. Left Lower Extremity: Hip flexion WFL. Hip abduction WFL. Knee flexion WFL. Ankle dorsiflexion WFL. Ankle plantarflexion WFL. Strength: Right Lower Extremity: Hip flexors 4-/5. Hip abductors 4-/5. Knee flexors 3-/5. Knee extensors 3-/5. Ankle dorsiflexors 5/5. Ankle plantarflexors 5/5. Left Lower Extremity:Hip flexors 5/5. Hip abductors 5/5. Knee flexors 5/5. Knee extensors 5/5. Ankle dorsiflexors 5/5. Ankle plantarflexors 5/5. Sensation: Intact as to pain and light pressure in bilateral lower extremities Bed Mobility/Transfers: Minimal cueing provided for use of B hands as needed for support, movement sequence, AD management, and posture to reduce fall risk and minimize pain report Supine to sit stand by assist Sit to stand conatct guard assist with FWW Stand to sitstand by assist with FWW Bed to chair stand by assist with FWW Gait: Facilitate safe and correct performance of level surface ambulation covering a distance of 50 feet using front wheeled walker with partial weight bearing on the left LE and standby assist from PT, minimal verbal cueing provided for weightbearing recommendation, limb movement sequence, AD management, and posture to minimize pain report and reduce fall risk. Steps: Guided patient with safe and correct negotiation of 6 x 4 inch steps and 4 x 6 inch steps while holding onto a rail with 1 hand and using a crutch on the other hand with step to gait pattern requiring only standby assist and minimal verbal cueing for limb movement sequence, recommended weightbearing precaution on the left LE, hand placement, and posture to minimize pain report and reduce fall risk. Balance: Static Sitting: Normal Dynamic Sitting: Normal Static Standing: Fair Dynamic Standing: Fair Special Tests: Mobility Limitations Standardized Measure [facility] 6 clicks Basic Mobility Inpatient Short Form: Raw Score: 23 CMS Score: 11% deficit Informed Consent/Education: Patient instructed in purpose of PT consult. Packet containing TKA exercise protocol has been given to patient. Education and training on initial set of exercises that can be done at home have been completed with patient. Trained patient with correct performance of exercises below to maximize motor control, joint flexibility, soft tissue extensibility of the L knee musculature: Access Code: [email or web address] URL: [email or web address] Date: 04/07/2024 Prepared by: Kaye Mckinney Exercises - Supine Quad Set - 1 x daily - 7 x weekly - 1 sets - 10 reps - 5 hold - Supine Heel Slide - 1 x daily - 7 x weekly - 1 sets - 10 reps - 5 hold - Supine Ankle Pumps - 1 x daily - 7 x weekly - 1 sets - 10 reps - 5 hold - Small Range Straight Leg Raise - 1 x daily - 7 x weekly - 1 sets - 10 reps - 5 hold - Seated March - 1 x daily - 7 x weekly - 1 sets - 10 reps - 5 hold Assessment: Patient requires the use of a front wheeled walker for all mobility ADL performance to maximize independence and reduce fall risk. Patient presents with clinical signs and symptoms consistent with current/admitting diagnoses that have resulted to mobility limitations, gait instability, generalized weakness, and impairment of motor control as demonstrated by the following impairment level findings: 1. Decreased strength to left knee major muscle groups 2. Impaired standing balance 3. Limitation of joint range of motion in left knee Impairments are contributing to the following functional limitations: 1. Inability to safely ambulate without assistive device 2. Increase completion time for mobility ADL performance 3. Increased fall risk Patient is assessed as a 86901 moderate complexity based on the following: History: 63-year-old female with impairment level findings, functional limitations, and past medical history as indicated above Examination: Demonstrable impairment in strength, balance, and mobility level with underlying impairments and functional limitations as documented above Presentation: Evolving Decision Makin moderate complexity Goals: N/A. PT evaluation and 1-2 treatment sessions only for functional mobility training using recommended AD and for HEP instruction. Plan of Care/Treatment Plan: N/A. PT evaluation and 1-2 treatment session only for functional mobility training using recommended AD and for HEP instruction. DISCHARGE RECOMMENDATIONS: Home when medically cleared by orthopedic surgeon. Recommend outpatient PT services in order to optimize functional mobility outcomes and facilitate return to independent community ambulation without an assistive device. TREATMENT CODE/TIME: 94630 x 20 minutes for 1 unit, 43481 x 10 minutes for 1 unit (16:37?17:07). Thank you for the opportunity to participate in the care of this patient. Please sign an return this page within 30 days if you agree with the above POC. Thank you! Physician Signature Date [facility] Kaye Mckinney PT, DPT, CLT [facility] [place], [place]
--- NOTE | 2024-04-07 17:42 | W.PM.OP ---
Date of service: 04/07/24 Time of Service: 10:30 Operative Note Operative Note DATE OF PROCEDURE: 04/07/24 PRE-OP DIAGNOSIS: Left Knee Osteoarthritis POST-OP DIAGNOSIS: same PROCEDURE: Left Total Knee Replacement SURGEON: Eamon Mcrae MARTIAL [employer]S INSTRUCTOR: Griselda Reyes ANESTHESIA TYPE: Spinal Refer to Anesthesia Record ESTIMATED BLOOD LOSS: 150 PATHOLOGY: none sent TOURNIQUET TIME: 0 COMPLICATIONS: Other (During tibial preparation there is no to be assist localize directly underneath the keel and slightly anterior lateral. It did not affect the post nor the rest the bone. During tibial implantation there is noted be some subsidence laterally with a small crack. This was tested and noted to be stab) Patient was transported to: PACU Patient's condition: stable Implants: 1. Depuy Attune Cementless Cruciate Retaining Femoral Component, Size 8 2. Depuy Attune Cementless Fixed Bearing Tibial Component, Size 7 3. Depuy Attune 8x6 CR/FB Poly 4. Depuy Attune Patellar Component, Size 35 Indications: I have seen Viktoria in clinic for symptoms of knee arthritis, confirmed with radiographic findings. She has exhausted nonoperative methods and was having significant limitations in daily function and desired better function and less pain. I discussed the technical details of a knee replacement. I explained the risks of the procedure to include, but not limited to, bleeding, infection, pain, stiffness, fracture, damage to nerves and vessels, damage to muscles and tendons, loosening, need for repeat procedure, blood clot and cardiopulmonary demise. Despite these risks, Viktoria elected to proceed. Findings: There was significant signs of arthritis throughout the knee. There was also a cyst found in the central tibia while preparing the keel which extended anterolaterally. During tibial implantation the tibia seem to subside with a small crack laterally and some slight increase in valgus orientation. Procedure Description: Viktoria was greeted in the preoperative holding area where the correct side was identified and marked. The consent was reviewed with the patient and signed. The history and physical was updated. All questions were answered. Preoperative medications were administered: Acetaminophen 1000mg, Celebrex 400mg, and Gabapentin 300mg. An adductor canal block was then administered by the anesthesia team in the DSU. Viktoria was taken back to the operating room. A spinal anesthestic was then administered. The patient was placed into the supine position on the operating room table. A nonsterile tourniquet was placed high onto the leg but only used for cementing. Posts were placed for positioning during the procedure. All bony prominences were well padded. Prophylactic antibiotics in the form of Cefazolin were administered. 1g of Tranxemic Acid was given intravenously within 30 minutes of incision. The left leg was then prepped with Chloraprep and draped in a standard fashion with impervious stockinette. A second prep with Chloraprep was performed prior to application of Iodine impregnated skin protection. A timeout to confirm correct identity, side and site, procedure, allergies, anesthesia, and medical concerns was performed. With the knee in some flexion, a midline incision was made overlying the knee. Full thickness skin flaps were raised once the extensor mechanism was encountered. These were raised medially and laterally. Any bleeding was controlled with electrocautery. Once the extensor mechanism was fully exposed, a medial parapatellar arthrotomy was performed in a flexed position. All bleeding from the arthrotomy and the geniculate arteries was coagulated. A medial subperiosteal peel was performed with electrocautery to the midcoronal plane. The fat pad was removed while keeping the patellar tendon protected. The anterior distal femur synovium was removed for later visualization. The ACL and PCL were resected and the anterior horn of the lateral meniscus was transected. The knee was then flexed with the patella everted. Large osteophytes from the tibia were removed. Large osteophytes from the femur were removed. Exposure was challenging throughout the case given the size of her knee and the size of the soft tissue envelope. Using a step drill, and based on preoperative templating, the femoral canal was entered. This was done with a step drill without any difficulty. The intramedullary distal femoral cut guide was inserted, set to a 5 degree valgus cut and 9mm cut thickness. The distal femoral cut guide was then held in position and pinned. With the soft tissues protected, the distal cut was performed. This was passed over a few times to ensure a planar cut. I then turned attention to the tibia. The extramedullary guide was placed onto the leg. The distal aspect was slid medial to adjust for position of center of ankle and stay in line with shaft of the tibia. Approximately 3-5 degrees of posterior slope was kept in the proximal cutting guide. The center of the guide was aligned with the PCL. The stylus was used to assess cut thickness. The medial side, most involved side, was set for a 4mm cut. This was then held in position and pinned into place with 2 additional pins and a cross pin for stability. The medial and lateral collateral ligaments were protected and the cut was performed. With this completed, it was assessed and noted to be of appropriate dimensions. The guide was removed. A spacer block was inserted and the knee was brought into extension. The 5mm spacer block provided full extension, without hyperextension and with stability of both the medial and lateral collateral ligaments was assessed. The pins from the femur and the tibia were then removed. The distal femur was then sized. The anterior stylus was placed onto the lateral ridge of the anterior femur. This indicated a size 8 femur. The external rotation of the guide was adjusted to 5 degrees to match the epicondylar axis, perpendicular to Andes?s line. The 4-in-1 cutting guide was the placed. The posterior medial femur cut was evaluated and appeared of good thickness. The spacer block was inserted underneath the cutting guide and stability was confirmed in 90 degrees of flexion. An kely wing was used to confirm appropriate position of the anterior cut to avoid notching. This cutting guide was ensured to be flush on the cut surface and then pinned into place with headed pins. While protecting the soft tissues, quad tendon, and collateral ligaments, the anterior and posterior cuts were performed with a saw. The central two pins were removed and the posterior and anterior chamfers were cut next. The notch-cutting guide was placed. This was pinned to lateralize the femoral component as much as possible while keeping it flush on the cut surface. This was then pinned into position. A reciprocating saw was used to make the notch cut. A rasp smoothed the cut surfaces. The medial and lateral menisci were removed. A trial femoral component was then inserted, impacted down to the cut surfaces, and the lug holes were drilled. A provisional trial tibial component was placed and the knee was brought through range of motion. There was noted to be excellent extension and flexion. There was no significant instability. The patella was tracking without thumbs. A size 5mm polyethylene component provided the best range of motion and stability with less than 2mm gapping with medial and lateral stress and full extension without significant hyperextension. The tibial cut surface was fully exposed. The tibia was then sized as a 7. The tibia had been previously marked during trialing to correspond to the center of the tibial component to help with rotation. The trial was aligned to this griselda, approximately rotated to the medial 1/3rd of the tibial tubercle. The trial was pinned into place. The tibia was prepared with a reamer and a keel punch and lug holes. During this process there was noted to be a small cystic structure within the central tibia directly beneath the keel which extending anterior laterally. It did not violate the tibial surface in order to violate the peg holes. The knee was then brought into extension and the patella was measured as 25mm. Using the patellar clamp and cut guide, this was resected to a flat surface with at least 13mm of thickness remaining. The size 35 patella fit the best. This was oriented and then clamped into position. The lugs were drilled. The trial components were removed. The final components were opened on the back table. The periosteal and capsular tissues, especially posteriorly, around the knee were then systematically injected with a periarticular cocktail consisting of 246mg of Ropivacaine, 0.5mg of Epinephrine, 0.08mg of Clonidine, and 30mg of Ketorolac, diluted to 100cc. On the back table, with the implants opened, the cement was mixed. One batch of high viscosity cement was prepared with vacuum assistance. After the cement was ready a small amount was placed on the cut surface of the patella and the patellar button was clamped into position and held. While the cement was hardening, the cementless knee components were placed. Starting with the tibial component, the tibia was subluxed anteriorly and the lug holes of the component were lined up. I was unable to use the keel as a guide to positioning of the tibia given the cystic change. Exposure was challenging. The tibial component was being placed under the tibia. As it was being position and slowly impacted in position there is some notable gapping laterally with what appear to be some subsidence of the implant laterally with a small crack seen lateral to the tibial tubercle. Attempt at removing the tibia was actually not that easy and seem to be fixed into the bone medially. Therefore, continue to impact the tibia where there was no further subsidence nor further gapping of this fracture line. He did not seem to go distally but exited out the lateral surface of the tibia the best I can tell. It was not able to be displaced. It was down fully to bone. Then, the femoral component was inserted. The lug holes were aligned and the component was impacted into position. I then placed a trial polyethylene into the knee. I stressed the knee and took it through range of motion. A size 6 mm polyethylene had a better fit. There is stability throughout all phases of motion. There is some very slight increased opening laterally and slight increase in a valgus appearance of the knee. However, through all this range of motion and stressing there is no gapping of this fracture fragment no further subsidence. Therefore, I kept the components and proceeded with placement of the final 8 x 6 mm polyethylene. Then, the knee was irrigated with Surgiphor Betadine solution. This was allowed to sit in the knee for 3 minutes and then it was irrigated out with saline. After the cement had finally cured, approximately 15min, the clamp was removed from the patella and the knee was taken through range of motion. The patella was tracking with a no-thumbs technique. The capsule was then reapproximated with a No. 1 Vicryl at multiple locations. The capsule was finally closed with a No. 2 Stratafix, barbed suture. The second dosing of 1g TXA was started. Deep tissues were then reapproximated with 0 Vicryl and 2-0 Vicryl. The skin was closed with a running 3-0 Monocryl in a subcuticular fashion. This was reinforced with skin glue. A Mepilex silver dressing was applied along with a [id number] VERONICA wrap. A CryoCuff was applied. Viktoria was transferred to the hospital bed without difficulty with the previously mentioned complication. I discussed the complication with her in the recovery room as well as with her sister. Viktoria has a guarded prognosis. Physical therapy will start today and without restrictions although I will ask her to remain using the walker at all times for the first 6 weeks of her recovery. I did discuss the use of a brace which I do not think would actually prevent any collapse of that were to happen and she would prefer to avoid 1. Aspirin 81mg BID will be used for DVT prophylaxis.
== END 2024-04-07 17:33 | disposition home or self-care (01) ==
LOC: SUR 08:20
PROVIDERS: PCP Nurse Practitioner Family; Visit Provider Student in an Organized Health Care Education/Training Program
PROC: (CPT 27447; principal; 2024-04-07 11:00)
DX: M17.12 Unilateral primary osteoarthritis, left knee (principal); E66.9 Obesity, unspecified; Z68.41 Body mass index [BMI] 40.0-44.9, adult; G89.18 Other acute postprocedural pain
CPT/HCPCS: 27447; 64447; 76942; 97162; 97530; 73560; C1776; J0171; J0690; J1100; J1171; J2250; J2371; J2401; J2405; J2704; J3010

== ENCOUNTER 2024-04-22 15:14 | Outpatient (CLI) | payer BC, SELFPAY ==
--- NOTE | 2024-04-22 09:30 | DI.RAD_ITS ---
Exam(s) XR KNEE LT 1V XR STANDING ALIGNMENT EXAM: XR STANDING ALIGNMENT and XR knee LT 1 V CLINICAL HISTORY: 1ST POST OP S/P L TKA. TECHNIQUE: 2D digital imaging was performed. Four images were obtained. COMPARISON: CR XR STANDING ALIGNMENT from 03/22/2024 CR XR KNEE LT 2V AP,LAT from 04/07/2024 FINDINGS: BONES: The hips are well maintained. The patient now has a left total knee replacement. The orthope dic hardware is in good position. There are degenerative changes seen in the right knee particularly the lateral joint compartment where there are prominent osteophytes. The ankles are well maintained .There is no significant leg length discrepancy. SOFT TISSUE: Normal. IMPRESSION: 1. Left total knee replacement. 2. Arthrosis of the right knee. DATA REPOSITORY: RADIATION DOSE DELIVERED:
== END 2024-04-22 15:15 | disposition home or self-care (01) ==
LOC: DIORS 15:14
PROVIDERS: PCP Nurse Practitioner Family; Visit Provider Student in an Organized Health Care Education/Training Program
DX: Z96.652 Presence of left artificial knee joint (principal); M17.11 Unilateral primary osteoarthritis, right knee
CPT/HCPCS: 73560; 77073

== ENCOUNTER 2024-05-20 15:51 | Outpatient (CLI) | payer BC, SELFPAY ==
--- NOTE | 2024-05-20 09:45 | DI.RAD_ITS ---
Exam(s) XR KNEE LT 2V AP,LAT EXAM: XR KNEE LT 2V AP,LAT CLINICAL HISTORY: TKR fx. TECHNIQUE: 2D digital imaging was performed. Three views. COMPARISON: CR XR KNEE LT 2V AP,LAT from 04/07/2024 CR XR KNEE LT 1V from 04/22/2024 CR XR STANDING ALIGNMENT from 04/22/2024 FINDINGS: BONES: No acute fracture is present. No bony destructive lesion is seen. JOINTS: The knee prosthesis normally aligned. No joint effusion is seen. SOFT TISSUE: Normal. IMPRESSION: Stable appearance of knee prosthesis. DATA REPOSITORY: RADIATION DOSE DELIVERED:
== END 2024-05-20 15:52 | disposition home or self-care (01) ==
LOC: DIORS 15:51
PROVIDERS: PCP Nurse Practitioner Family; Visit Provider Physician Assistant
DX: Z96.652 Presence of left artificial knee joint (principal); Z47.1 Aftercare following joint replacement surgery
CPT/HCPCS: 73560

== ENCOUNTER 2024-07-01 15:29 | Outpatient (CLI) | payer BC, SELFPAY ==
--- NOTE | 2024-07-01 10:00 | DI.RAD_ITS ---
Exam(s) XR KNEE LT 2V AP,LAT EXAM: XR KNEE LT 2V AP,LAT INDICATION: s/p TKR. COMPARISON: CR XR KNEE LT 3V AP,LAT,ELIZABETH from 08/25/2023 CR XR KNEE LT 2V AP,LAT from 04/07/2024 CR XR STANDING ALIGNMENT from 04/22/2024 CR XR KNEE LT 1V from 04/22/2024 CR XR KNEE LT 2V AP,LAT from 05/20/2024 TECHNIQUE: 2D digital imaging was performed. Two views. FINDINGS: Stable alignment of total knee prosthesis. No abnormal bony lucencies. DATA REPOSITORY: RADIATION DOSE DELIVERED:
== END 2024-07-01 15:30 | disposition home or self-care (01) ==
LOC: DIORS 15:30
PROVIDERS: PCP Nurse Practitioner Family; Visit Provider Physician Assistant
DX: Z96.652 Presence of left artificial knee joint (principal); Z47.1 Aftercare following joint replacement surgery
CPT/HCPCS: 73560

== ENCOUNTER 2024-07-14 15:40 | Outpatient (CLI) | payer BC, SELFPAY ==
--- NOTE | 2024-07-14 08:45 | DI.RAD_ITS ---
Exam(s) XR SHOULDER RT COMPLETE 2+V EXAM: XR SHOULDER RT COMPLETE 2+V CLINICAL HISTORY: RIGHT SHOULDER PAIN. TECHNIQUE: 2D digital imaging was performed of the right shoulder. Two images were obtained. Grash ey and Y views were obtained. COMPARISON: CR RIGHT SHOULDER COMPLETE from 10/16/2016 FINDINGS: BONES: No acute fracture is present. No bony destructive lesion is seen. JOINTS: No dislocation present. The glenohumeral joint is well maintained. SOFT TISSUE: The soft tissue calcification previously seen adjacent to the greater tuberosity is no l onger visualized. No soft tissue calcifications are present. IMPRESSION: No acute abnormality. DATA REPOSITORY: RADIATION DOSE DELIVERED:
== END 2024-07-14 15:41 | disposition home or self-care (01) ==
LOC: DIORS 15:41
PROVIDERS: PCP Nurse Practitioner Family; Visit Provider Student in an Organized Health Care Education/Training Program
DX: M25.511 Pain in right shoulder (principal)
CPT/HCPCS: 73030

== ENCOUNTER 2024-11-24 02:06 | Outpatient (CLI) | payer BC, SELFPAY ==
--- NOTE | 2024-11-24 06:45 | DI.MAMMO_ITS ---
Exam(s) MAMMO SCREENING EXAM: MAMMO SCREENING CLINICAL HISTORY: screening,z12.39 TECHNIQUE: Bilateral full field digital CC and MLO mammographic images were obtained with 3D tomosyn thesis and utilizing computer aided detection (CAD). COMPARISON: Comparison is made with prior examinations. FINDINGS: Masses/Architectural Distortion: There are stable nodule seen in the right breast. There is a questi on of an area of spiculation in the outer right breast on the craniocaudad view. This is best apprec iated on the tomographic images. Microcalcifications: No suspicious pleomorphic-type are seen. Skin Thickening/Nipple Retraction: None. IMPRESSION: 1. Area of spiculation in the outer right breast on the CC view. 2. Spot compression views requested for further evaluation. Ultrasound may be indicated at that time . BI-RADS Category 0 - Incomplete: Need additional imaging evaluation Breast Density - Category C - The breast are heterogeneously dense, which may obscure small masses. Breast density Category C or D implies that the patient has dense breast tissue. Dense breast tissue can make it harder to find cancer on a mammogram. Dense breast tissue is also associated with an incr eased risk of breast cancer. This information about the result of the mammogram report was provided to the patient to raise their awareness. Use this report when you speak with the patient about their risks for breast cancer, which includes their family history. At that time, you may recommend additional screening tests (Ultrasoun d or MRI) as these tests may add significant information. A negative radiographic report should not delay biopsy if a dominant or clinically suspicious mass is present. Up to ten percent of cancers are not identified on mammography. A negative report may reinforce clinical impression. Adenosis and dense breasts may obscure an underlying neoplasm. False positive reports average 6 to 10%. Patient will receive a letter notifying them of these results.
== END 2024-11-24 02:26 ==
LOC: DI 02:06
PROVIDERS: PCP Nurse Practitioner Family; Visit Provider Nurse Practitioner Family
DX: Z12.31 Encounter for screening mammogram for malignant neoplasm of breast (principal); R92.333 Mammographic heterogeneous density, bilateral breasts
CPT/HCPCS: 77063; 77067

== ENCOUNTER 2024-12-01 10:44 | Outpatient (REF) | payer BC, SELFPAY ==
--- NOTE | 2024-12-01 10:10 | PAPFT_PTH ---
PATIENT: Viktoria Hurst LOC: [facility] U#:[id number] AGE/SX: 64/F ROOM: RE12/01/[address]: [place] Lovett NP : 1960 BED: DIS: 12/01/2024 SPEC #: [id number] RECD: 12/01/24 13:00 STATUS: CAROL ANN RECierra #: [id number] HAMIDA: 12/01/24 10:[address]: Rachell [place] DEPT: [facility] Cytology RECD BY: Alisha Tipton ENTERED: 12/01/24 13:01 SP TYPE: PAPFT OTHR DR: Bill Cotton NP Tissues: 1 - CX/ENDOCX FOR PAP SMEARS Procedures: PAP THIN PREP/[facility] Screening HPV DNA PROBE Comments: [id number] (HPV 16 & 18/45)
== END 2024-12-01 10:45 | disposition home or self-care (01) ==
LOC: LBN 10:44
PROVIDERS: PCP Nurse Practitioner Family; Visit Provider Nurse Practitioner Women's Health
DX: Z12.4 Encounter for screening for malignant neoplasm of cervix (principal)
CPT/HCPCS: 88142; 87624

== ENCOUNTER 2024-12-03 00:26 | Outpatient (CLI) | payer BC, SELFPAY ==
--- NOTE | 2024-12-03 | DI.US_ITS ---
Exam(s) MG MAMMO SCREEN CALL BACK UNI US BREAST RT LIMITED EXAM: MG MAMMO SCREEN CALL BACK UNI CLINICAL HISTORY: Area of spiculation in outer Rt breast on CC view.. TECHNIQUE: Craniocaudal and mediolateral oblique spot compression digital Mammography views of the right breast with Tomosynthesis and right breast ultrasound. COMPARISON: MG R. Spot - Same Day from 10/18/2016 MG Screening Bilat Mammo from 12/26/2017 MG MG MAMMO SCREENING from 06/11/2019 MG MG MAMMO SCREENING from 10/24/2021 MG MG MAMMO SCREENING from 11/06/2022 MG MG MAMMO SCREENING from 11/24/2024 US US BREAST RT LIMITED from 12/03/2024 FINDINGS: Mammography/Tomosynthesis: Masses: Stable circumscribed nodules. Architectural Distortion: Persistent area of architectural distortion is noted in the upper outer quadrant. Microcalcifictions: No suspicious pleomorphic-type are seen. Large benign calcifications are again noted. Skin Thickening/Nipple Retraction: None. Right breast US: Echotexture: Normal appearance of the glandular tissue. Shadowing: Large shadowing calcification posteriorly. Cyst: None. Solid lesions: Smoothly marginated hypoechoic nodule in the 9 o'clock position 2 cm from the nipple measuring 11 millimeters in greatest dimension. Additional 10 by 9 x 5 millimeter nodule 9 o'clock position, 4 cm from the nipple. Area of architectural distortion, shadowing and spiculation noted in the 9 o'clock position, 3 cm from the nipple. Difficult to discretely measure, proximally 1 cm. Ductal dilation: None. IMPRESSION: 1. Area of architectural distortion and spiculation in the lateral right breast visible on both mammogram and ultrasound. The patient has had history of previous fibroadenoma resection the findings could represent scarring, however malignancy is not excluded. Biopsy is recommended. MRI could also be considered for further evaluation. 2. The findings were discussed with the patient on the date of the examination. Findings were also discussed with Bill Cotton, referring provider. BI-RADS Category 4 - Suspicious Abnormality: Biopsy should be considered Breast Density - Category C - The breast are heterogeneously dense, which may obscure small masses. Breast density Category C or D implies that the patient has dense breast tissue. Dense breast tissue can make it harder to find cancer on a mammogram. Dense breast tissue is also associated with an increased risk of breast cancer. This information about the result of the mammogram report was provided to the patient to raise their awareness. Use this report when you speak with the patient about their risks for breast cancer, which includes their family history. At that time, you may recommend additional screening tests (Ultrasound or MRI) as these tests may add significant information. A negative radiographic report should not delay biopsy if a dominant or clinically suspicious mass is present. Up to ten percent of cancers are not identified on mammography. A negative report may reinforce clinical impression. Adenosis and dense breasts may obscure an underlying neoplasm. False positive reports average 6 to 10%. Patient will receive a letter notifying them of these results.
== END 2024-12-03 00:46 ==
LOC: DI 00:26
PROVIDERS: PCP Nurse Practitioner Family; Visit Provider Nurse Practitioner Family
DX: Z12.31 Encounter for screening mammogram for malignant neoplasm of breast (principal); R92.333 Mammographic heterogeneous density, bilateral breasts
CPT/HCPCS: 76642; 77063; 77067

== ENCOUNTER 2024-12-08 01:29 | Outpatient (CLI) | payer BC, SELFPAY ==
[2024-12-08 12:49] LABS: Calculated LDL 86 mg/dL (<100); Cholesterol 169 mg/dL (<200); HDL Cholesterol 74 mg/dL (>or=50); TSH (W/Ref FT4) 10.97 uIU/mL (0.36-3.74); Triglyceride 46 mg/dL (<150)
[2024-12-08 13:10] LABS: FREE T4 0.83 ng/dL (0.76-1.46)
[2024-12-08 13:52] LABS: Hemoglobin A1C 5.5 % (<5.7)
== END 2024-12-08 01:30 | disposition home or self-care (01) ==
LOC: LOS 01:29
PROVIDERS: PCP Nurse Practitioner Family; Visit Provider Nurse Practitioner Family
DX: Z13.220 Encounter for screening for lipoid disorders (principal); Z13.1 Encounter for screening for diabetes mellitus; E03.9 Hypothyroidism, unspecified
CPT/HCPCS: 36415; 80061; 83036; 84439; 84443

== ENCOUNTER 2025-04-07 14:57 | Outpatient (CLI) | payer BC, SELFPAY ==
--- NOTE | 2025-04-07 08:15 | DI.RAD_ITS ---
Exam(s) XR KNEE LT 2V AP,LAT EXAM: XR KNEE LT 2V AP,LAT CLINICAL HISTORY: F/U LEFT TKA. TECHNIQUE: 2D digital imaging was performed. Two images were obtained. AP and lateral views were obtained. COMPARISON: CR XR KNEE LT 1V from 04/22/2024 CR XR KNEE LT 2V AP,LAT from 05/20/2024 CR XR KNEE LT 2V AP,LAT from 07/01/2024 FINDINGS: BONES: There are stable post operative changes of a left total knee arthroplasty present. No fracture or dislocation. JOINTS: The orthopedic hardware is in good position. No evidence of hardware loosening. SOFT TISSUE: Normal. IMPRESSION: Stable left total knee arthroplasty. DATA REPOSITORY: RADIATION DOSE DELIVERED:
== END 2025-04-07 14:58 | disposition home or self-care (01) ==
LOC: DIORS 14:57
PROVIDERS: PCP Nurse Practitioner Family; Visit Provider Student in an Organized Health Care Education/Training Program
DX: Z96.652 Presence of left artificial knee joint (principal)
CPT/HCPCS: 73560